=== PATIENT | male | born 1960 | race Caucasian/White ===

== ENCOUNTER → 2017-08-27 16:00 | Outpatient (CLI) | payer OTHER, SELFPAY ==
--- NOTE | 2017-08-27 16:56 | EKG12_ITS ---
Test Reason : PREOP Blood Pressure : / mmHG Vent. Rate : 081 BPM Atrial Rate : 081 BPM P-R Int : 146 ms QRS Dur : 098 ms QT Int : 388 ms P-R-T Axes : 040 -06 019 degrees QTc Int : 450 ms Normal sinus rhythm Normal ECG Confirmed by KARLO CARPIO ([id number]), acquisition editor DEVANTE ELDRIDGE ([id number]) on 08/29/2017 2:27:03 PM Referred By: Willie Mortensen Confirmed By:KARLO CARPIO
[2017-08-27 17:04] LABS: Hemoglobin 15.1 g/dl (13.0-16.5); Mean Corp Hgb Conc 34.3 g/gl (32-36); Mean Corpuscular Hgb 29.3 pg (27.0-32.0); Mean Corpuscular Volume 85.4 fL (80-94); Mean Platelet Vol. 10.2 fl (6.2-12.0); Platelet Count 214 K/mm3 (150-450); RBC Distribution Width CV 13.4 % (11.6-14.6); RBC Distribution Width SD 40.9 fl (35.1-43.9); Red Blood Count 5.15 M/mm3 (4.6-6.2); White Blood Count 7.2 K/mm3 (4.4-11.0)
[2017-08-27 17:05] LABS: Scan Indicated on CBC? Y/N NO
[2017-08-27 17:39] LABS: Anion Gap 10 (5-15); BUN 18 mg/dL (7-18); Calcium,Total 9.2 mg/dL (8.5-10.1); Chloride 103 mmol/L (98-107); EST Glomerular Filtration Rate 81 mL/min (>60); Est Glom Filt Rate - Afr Amer 98 mL/min (>60); Glucose 81 mg/dL (74-106); Potassium 3.8 mmol/L (3.5-5.1); Sodium Level 140 mmol/L (136-145)
== END ==
PROVIDERS: Family Provider Family Medicine; PCP Family Medicine; Visit Provider Orthopaedic Surgery
DX: Z01.810 Encounter for preprocedural cardiovascular examination (principal); Z01.818 Encounter for other preprocedural examination
CPT/HCPCS: 36415; 80048; 85027; 93005

== ENCOUNTER → 2018-04-16 15:43 | Outpatient (CLI) | payer OTHER, SELFPAY | PROVIDERS: Family Provider Family Medicine; PCP Family Medicine; Referring Provider Otolaryngology Otolaryngology/Facial Plastic Surgery; Visit Provider Otolaryngology Otolaryngology/Facial Plastic Surgery | DX: J32.9 Chronic sinusitis, unspecified (principal) | CPT/HCPCS: 87070; 87205 ==

== ENCOUNTER → 2018-10-07 15:54 | Outpatient (CLI) | payer OTHER, SELFPAY | PROVIDERS: Family Provider Family Medicine; PCP Family Medicine; Referring Provider Otolaryngology Otolaryngology/Facial Plastic Surgery; Visit Provider Otolaryngology Otolaryngology/Facial Plastic Surgery | DX: J32.9 Chronic sinusitis, unspecified (principal) | CPT/HCPCS: 87070; 87077; 87186; 87205 ==

== ENCOUNTER → 2018-10-17 15:58 | Outpatient (CLI) | payer OTHER, SELFPAY ==
[2018-10-17 17:11] LABS: Potassium 3.8 mmol/L (3.5-5.1)
== END ==
PROVIDERS: Family Provider Family Medicine; PCP Family Medicine; Referring Provider Otolaryngology Otolaryngology/Facial Plastic Surgery; Visit Provider Otolaryngology Otolaryngology/Facial Plastic Surgery
DX: T88.7XXA Unspecified adverse effect of drug or medicament, initial encounter (principal); Z79.899 Other long term (current) drug therapy
CPT/HCPCS: 36415; 84132

== ENCOUNTER → 2018-11-19 16:00 | Outpatient (CLI) | payer OTHER, SELFPAY ==
[2018-11-19 17:30] LABS: Absolute Lymphocyte Count 2.01 X10^3/ul (0.83-4.51); Absolute Neutrophil Count 4.9 X10^3/uL (2.0-7.7); Basophil# 0.06 X10^3/uL; Basophil% 0.8 % (0-1); Eosinophil# 0.13 X10^3/uL; Eosinophils% 1.6 % (0-5); Hematocrit 43.8 % (40-54); Hemoglobin 14.6 g/dl (13.0-16.5); Lymphocyte # 2.01 X10^3/ul (4.0); Lymphocyte % 25.4 % (19-41); Mean Corp Hgb Conc 33.3 g/gl (32-36); Mean Corpuscular Hgb 29.3 pg (27.0-32.0); Mean Platelet Vol. 10.5 fl (6.2-12.0); Monocyte# 0.76 X10^3/uL; Monocyte% 9.6 % (0-10); Neutrophil # 4.94 X10^3/uL (2.7-7.7); Neutrophil % 62.3 % (47-70); Platelet Count 227 K/mm3 (150-450); RBC Distribution Width CV 13.9 % (11.6-14.6); RBC Distribution Width SD 44.6 fl (35.1-43.9); Red Blood Count 4.98 M/mm3 (4.6-6.2); White Blood Count 7.9 K/mm3 (4.4-11.0)
[2018-11-19 17:32] LABS: POSITIVE COUNT NO; POSITIVE DIFFERENTIAL NO; POSITIVE MORPHOLOGY NO
[2018-11-19 17:42] LABS: AST(SGOT) 14 U/L (15-37); Alanine Aminotransfer ALT/SGPT 29 U/L (16-61); Albumin, Serum 4.2 g/dL (3.2-5.0); Alkaline Phosphatase 67 U/L (45-117); Anion Gap 8 (5-15); BUN 22 mg/dL (7-18); BUN/Creat Ratio 20.2 RATIO (10-20); Bilirubin, Direct 0.12 mg/dL (0.00-0.30); Calcium,Total 9.9 mg/dL (8.5-10.1); Chloride 105 mmol/L (98-107); Creatinine, Serum 1.09 mg/dL (0.70-1.30); EST Glomerular Filtration Rate 73 mL/min (>60); Est Glom Filt Rate - Afr Amer 89 mL/min (>60); Globulin 3.5 g/dL (2.2-4.2); Glucose 84 mg/dL (74-106); Protein, Total 7.7 g/dL (6.4-8.2); Sodium Level 140 mmol/L (136-145)
[2018-11-22 08:13] LABS: QNTFERON TB Mitogen Value > 10.00 IU/mL (.); QNTFERON TB Nil Value 0.02 IU/mL (.); QNTFERON TB1+ Ag Value 0.03 IU/mL (.); QNTFERON TB2+ Ag Value 0.02 IU/mL (.)
[2018-11-23 14:01] LABS: QNTIFERON TB Positive Criteria Negative (Negative)
== END ==
PROVIDERS: Family Provider Family Medicine; PCP Family Medicine; Referring Provider Nurse Practitioner Family; Visit Provider Nurse Practitioner Family
DX: L40.0 Psoriasis vulgaris (principal); Z79.899 Other long term (current) drug therapy
CPT/HCPCS: 36415; 80048; 80076; 85025; 86480

== ENCOUNTER → 2019-05-18 16:32 | Outpatient (CLI) | payer OTHER, SELFPAY ==
--- NOTE | 2019-05-18 16:40 | EKG12_ITS ---
Test Reason : PRE-OP Blood Pressure : / mmHG Vent. Rate : 078 BPM Atrial Rate : 078 BPM P-R Int : 146 ms QRS Dur : 094 ms QT Int : 392 ms P-R-T Axes : 044 -05 007 degrees QTc Int : 446 ms Normal sinus rhythm Normal ECG Confirmed by NITISH PRITCHARD, YASMIN ([id number]), story editor JOCELYN NAVA ([id number]) on 05/19/2019 8:46:01 AM Referred By: Leigha Cotter Confirmed By:YASMIN TALBERT MD
[2019-05-18 17:18] LABS: Hematocrit 46.7 % (40-54); Hemoglobin 14.8 g/dL (13.0-16.5); Mean Corp Hgb Conc 31.7 g/dL (32-36); Mean Corpuscular Volume 88.4 fL (80-94); Mean Platelet Vol. 10.2 fl (6.2-12.0); Platelet Count 260 K/mm3 (150-450); RBC Distribution Width CV 13.2 % (11.6-14.6); Red Blood Count 5.28 M/mm3 (4.6-6.2); White Blood Count 9.7 K/mm3 (4.4-11.0)
[2019-05-18 17:55] LABS: Anion Gap 5 (5-15); BUN 22 mg/dL (7-18); BUN/Creat Ratio 20.6 RATIO (10-20); Calcium,Total 9.3 mg/dL (8.5-10.1); Chloride 103 mmol/L (98-107); Creatinine, Serum 1.07 mg/dL (0.70-1.30); EST Glomerular Filtration Rate 75 mL/min (>60); Est Glom Filt Rate - Afr Amer 90 mL/min (>60); Glucose 64 mg/dL (74-106); Sodium Level 139 mmol/L (136-145)
== END ==
PROVIDERS: Family Provider Family Medicine; PCP Family Medicine; Referring Provider Registered Nurse; Visit Provider Registered Nurse
DX: Z01.810 Encounter for preprocedural cardiovascular examination (principal); Z01.818 Encounter for other preprocedural examination
CPT/HCPCS: 36415; 80048; 85027; 93005

== ENCOUNTER → 2019-06-04 16:32 | Outpatient (CLI) | payer OTHER, SELFPAY ==
--- NOTE | 2019-06-04 16:40 | RAD_ITS ---
STUDY: X-RAY - PELVIS AND LEFT HIP REASON FOR EXAM: Left hip pain. TECHNIQUE: 2 views of the pelvis and hip. COMPARISON: None. FINDINGS: Normal visualized soft tissue structures. There is enthesopathy of the iliac wings bilaterally. Otherwise, unremarkable bilateral iliac wings, sacroiliac joints and visualized sacrum. Normal bilateral superior and inferior pubic rami. Normal pubic symphysis. There is enthesopathy of the bilateral ischial tuberosities. Normal visualized femoral head. Normal acetabulum. Normal hip joint. RAD/HIP, UNI W/ Pelvis 2-3 Views IMPRESSION: Enthesopathy of the iliac wings and ischial tuberosities. Otherwise, unremarkable x-ray examination of the pelvis and left hip. Electronically Signed: Kevin Wong MD at 12:45 EST Tel , Service support ,
== END ==
LOC: RAD 16:34
PROVIDERS: PCP Family Medicine; Referring Provider Nurse Practitioner Family; Visit Provider Nurse Practitioner Family
DX: M25.552 Pain in left hip (principal)
CPT/HCPCS: 73502

== ENCOUNTER → 2019-12-25 14:49 | Outpatient (CLI) | payer OTHER, SELFPAY ==
[2019-12-25 17:34] LABS: Absolute Lymphocyte Count 1.67 X10^3/uL (0.83-4.51); Absolute Neutrophil Count 4.9 X10^3/uL (2.0-7.7); Basophil# 0.05 X10^3/uL; Basophil% 0.7 % (0-1); Eosinophil# 0.09 X10^3/uL; Eosinophils% 1.2 % (0-5); Hematocrit 42.9 % (40-54); Lymphocyte # 1.67 X10^3/ul (4.0); Lymphocyte % 22.6 % (19-41); Mean Corp Hgb Conc 32.6 g/dL (32-36); Mean Corpuscular Hgb 28.6 pg (27.0-32.0); Mean Corpuscular Volume 87.6 fL (80-94); Mean Platelet Vol. 10.7 fl (6.2-12.0); Monocyte# 0.65 X10^3/uL; Monocyte% 8.8 % (0-10); NRBC Flagged by Analyzer 0 % (0-5); Neutrophil % 66.2 % (47-70); Platelet Count 222 K/mm3 (150-450); RBC Distribution Width CV 13.2 % (11.6-14.6); RBC Distribution Width SD 42.1 fl (35.1-43.9); White Blood Count 7.4 K/mm3 (4.4-11.0)
[2019-12-25 17:50] LABS: ALB/GLOB Ratio 1.1 RATIO (0.9-2.4); AST(SGOT) 14 U/L (15-37); Alanine Aminotransfer ALT/SGPT 31 U/L (16-61); Albumin, Serum 3.9 g/dL (3.2-5.0); Alkaline Phosphatase 67 U/L (45-117); Anion Gap 6 (5-15); BUN 17 mg/dL (7-18); BUN/Creat Ratio 19.7 RATIO (10-20); Bilirubin, Direct 0.18 mg/dL (0.00-0.30); Chloride 105 mmol/L (98-107); Cholesterol 162 mg/dL (200); Creatinine, Serum 0.86 mg/dL (0.70-1.30); EST Glomerular Filtration Rate 95 mL/min (>60); Est Glom Filt Rate - Afr Amer 115 mL/min (>60); Globulin 3.6 g/dL (2.2-4.2); Glucose 78 mg/dL (74-106); High Density Lipoprotein 35 mg/dL; Potassium 3.9 mmol/L (3.5-5.1); Protein, Total 7.5 g/dL (6.4-8.2); Sodium Level 140 mmol/L (136-145); Triglycerides 182 mg/dL; Very Low Density Lipoprotein 36 mg/dL (5-40)
[2019-12-26 10:58] LABS: Hepatitis B Surface Antibody Non-Reactive; Hepatitis B Surface Antigen Non-Reactive (Nonreactive); Hepatitis C Antibody Non-Reactive (Nonreactive)
[2019-12-30 05:07] LABS: QNTFERON TB Mitogen Value > 10.00 IU/mL (.); QNTFERON TB Nil Value 0.04 IU/mL (.); QNTFERON TB1+ Ag Value 0.04 IU/mL (.); QNTFERON TB2+ Ag Value 0.02 IU/mL (.)
[2019-12-30 06:11] LABS: QNTIFERON TB Positive Criteria Negative (Negative)
== END ==
PROVIDERS: PCP Family Medicine; Referring Provider Physician Assistant; Visit Provider Physician Assistant
DX: L40.0 Psoriasis vulgaris (principal); Z79.899 Other long term (current) drug therapy
CPT/HCPCS: 36415; 80053; 80061; 82248; 85025; 86480; 86706; 86803; 87340

== ENCOUNTER 2022-01-18 16:00 | Outpatient (RCR) | payer OTHER, SELFPAY ==
--- NOTE | 2021-12-20 14:19 | HP.PTEVAL_ITS ---
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 Date of Evaluation: 12/20/21 Physical Therapist: Bev Church DPT - Visit Plan Frequency: 3x /Week Duration: 4 Weeks Plan: Focus on LE and core strength/stabilization- ROM and functional mobility. HEP Given IE: Bolster extn, quad set, SLR, heel slide seated and supine, hamstring stretch - Subjective Patient reports that about [address] Giordano- cleaned it out- at the time he told him that OA and it was a 3 and 4 bone on bone- keep the leg strong and you will be okay for awhile. At the end of September- he was in a hurry getting to work- tripped and fell and ran his knee into the side of the counter and it bled pretty good. Went to work- about a week later- red/swollen- went to ER at [facility]- they did no blood work and gave him gout pills and send him to his arthritis MD. October 12 he saw the [employer]- she tried to drain some of the fluid off. Mustard color came out- she called his PCP- Infection- sent him [place] for infection-Dr. Bond went in and scrubbed it out and hosed it out. Was in the hospital for 15 days. He went home- [facility] did home health therapy- went to see MD on Saturday- who wants him to get into outpatient. Was on a walker until about a week ago and is now on a cane. Best: 05/22 Eases: sitting down and putting ice on it. Agg: stepping incorrectly. Worst: 01/20. Patient reports that he has crunching noises. Sleep: hard to get comfortable. Describes the pain as dull and achy as well as sharp and shooting depending on what he is doing. Pain is located in the whole knee- no pain that radiates down to the ankle or up into the hip. X-rays were taken Saturday. 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 Is not currently back to work- needs to get back by the end of the month. He can return light duty. Goes to his PCP the 04 of January- Infectious disease Jan 09- [place] in Jan. No N/T in the LE. PMHx: psoriatic arthritis. - Objective Posture: FH, RS can correct with verbal cues but does not maintain. Gait: antalgic- step to pattern with straight cane- decreased stance on the right LE with poor heel/toe pattern. HR/TR: able but reports discomfort. SLS: weight shift but reports pain and instability. Flex: HS: severe, Gastroc: severe. Girth: Patella: 45 cm 6 below: 39 cm, 6 above: 59 cm. ROM: 15-100 degrees. Strength: Core: fair, Hip: 4-/5, Knee: 4/5, Ankle: 5/5. Stairs: non recip with 2 HR - Balance/Special Test Scores Lower Extremity Functional Score: 16 - Goals Goal 1:: Patient will be I with HEP and progression Goal Time Frame: 4-6 Weeks Goal 2:: Patient will ambulate >300 feet with a normalized gait pattern and LRD Goal Time Frame: 4-6 Weeks Goal 3:: Patient will asc/desc 8 stairs recip with 1 HR Goal Time Frame: 4-6 Weeks Goal 4:: Patient will demo 0-120 degrees of ROM Goal Time Frame: 4-6 Weeks Goal 5:: Patient will report 80% improvement. Goal Time Frame: 4-6 Weeks - Rehabilitation Potential Physical Therapy Diagnosis: Patient presents s/p scrub for infection on the right knee- he has decreased LE and core strength/stabilization, ROM, flex, proprioception and functional mobility leading to abnormal gait and decreased ability to perform ADL's Rehabilitation Potential: Good - Anticipated Interventions Patient/Client Instruction: Educate patient on: Benefits of Fitness Program Therapeutic Exercise to Include: Strength training, Endurance training, Balance training, Coordination, Agility training, Body mechanics, Postural training, Flexibilty training, Gait and locomotor training, Neuromotor development, Dynamic Lumbar Stabilization, Scapular Strength/Stabilization For the Purpose of:: To improve muscle performance and motor function TENS: Yes Cryotherapy (ice pack, ice massage): Yes Thermo therapy (hot pack): Yes Ultrasound (thermal/non thermal): No Thank you for the opportunity to evaluate your patient. For Medicare and Medicare HMO plans, please review the plan of care and approve it. It will need to be FAXED BACK to us at [phone] for Medicare purposes. For Medicare only, by signing this I certify the plan of care. Please let me know if there are questions or concerns regarding this plan of care. Physician Signature: Date:
--- NOTE | 2022-01-18 16:25 | HP.PTREVAL_ITS ---
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 Please see the progress note below for an update on the physical therapy plan of care! Subjective: Patient reports that he is a lot better than the first time he came to therapy. He has some soreness due to back to back days yesterday. Patient reports that he is still doing stairs one at a time and can't get out to do his bow. He is able to perform all ADL's without significant modification but can't perform his recreational activities. He would like to continue to work towards his goals indep with a home exercise program. Goes back to MD Jan 26. He feels that something is different in the knee. Dec 18 was the last x-rays taken of the knee. Infectious disease wants to him to have MRI. Objective/Function: Posture: FH, RS can correct with verbal cues but does not maintain. Gait: slightly antalgic- decreased stance on the right LE- straight cane. HR/TR: able without UE A. SLS: 10 seconds Flex: HS: severe, Gastroc: severe. ROM: 0-120 degrees. Strength: Core: fair, Hip: 4+/5, Knee: 5/5 with discomfort, Ankle: 5/5. Stairs: partial recip with 2 HR reports pain and instability Plan Plan: 01/18/22: Hold- will do HEP and follow up in 4-6 weeks- if no FU d/c. Focus on LE and core strength/stabilization - ROM and functional mobility. Balance/Gait/Functional tests - Balance/Special Test Scores Lower Extremity Functional Score: 26 Goals Goal 1:: Patient will be I with HEP and progression Goal Time Frame: 4-6 Weeks Goal Progress: Goal Met Goal 2:: Patient will ambulate >300 feet with a normalized gait pattern and LRD Goal Time Frame: 4-6 Weeks Goal Progress: Progressing Goal 3:: Patient will asc/desc 8 stairs recip with 1 HR Goal Time Frame: 4-6 Weeks Goal Progress: Progressing Goal 4:: Patient will demo 0-120 degrees of ROM Goal Time Frame: 4-6 Weeks Goal Progress: Goal Met Goal 5:: Patient will report 80% improvement. Goal Time Frame: 4-6 Weeks Goal Progress: Progressing Anticipated Interventions Patient/Client Instruction: Educate patient on: Benefits of Fitness Program Therapeutic Exercise to Include: Strength training, Endurance training, Balance training, Coordination, Agility training, Body mechanics, Postural training, Flexibilty training, Gait and locomotor training, Neuromotor development, Dyn amic Lumbar Stabilization, Scapular Strength/Stabilization For the Purpose of:: To improve muscle performance and motor function TENS: Yes Cryotherapy (ice pack, ice massage): Yes Thermo therapy (hot pack): Yes Ultrasound (thermal/non thermal): No Please do not hesitate to contact me at [phone] by phone or if you have questions or concerns regarding this new plan of care! Sincerely, RAQUEL MurrayT
--- NOTE | 2022-04-12 07:56 | HP.PT.NRP ---
ADAN VERA was seen in my office for initial evaluation on 12/20/21. The following Plan of Care was established for this patient: Initial Frequency: 3x /Week Initial Duration: 4 Weeks Patient/Client Instruction: Educate patient on: Benefits of Fitness Program Therapeutic Exercise to Include: Strength training, Endurance training, Balance training, Coordination, Agility training, Body mechanics, Postural training, Flexibilty training, Gait and locomotor training, Neuromotor development, Dynamic Lumbar Stabilization, Scapular Strength/Stabilization For the Purpose of:: To improve muscle performance and motor function TENS: Yes Cryotherapy (ice pack, ice massage): Yes Thermo therapy (hot pack): Yes Ultrasound (thermal/non thermal): No This patient was last seen in our office . Pertinent comments regarding their Physical therapy will appear below: Patient has not attended physical therapy in over 30 days- at this time d/c is appropriate and return to the MD for further evaluation as needed At this point I will be discontinuing this patient from physical therapy. I would be happy to see this patient again in the future if found appropriate by the physician. Thank you! Bev Church DPT Balance/Gait/Functional tests - Balance/Special Test Scores Lower Extremity Functional Score: 26
== END 2022-01-18 19:00 | disposition home or self-care (01) ==
LOC: PT 16:00
PROVIDERS: PCP Nurse Practitioner Primary Care
DX: M00.861 Arthritis due to other bacteria, right knee (principal); B95.62 Methicillin resistant Staphylococcus aureus infection as the cause of diseases classified elsewhere
CPT/HCPCS: 97110; 97140; 97162; 97164

== ENCOUNTER → 2022-12-03 | Outpatient (CLI) | payer OTHER, SELFPAY ==
--- NOTE | 2022-12-03 12:21 | EKG12_ITS ---
Test Reason : PRE OP Blood Pressure : / mmHG Vent. Rate : 072 BPM Atrial Rate : 072 BPM P-R Int : 152 ms QRS Dur : 096 ms QT Int : 396 ms P-R-T Axes : 056 043 023 degrees QTc Int : 433 ms Normal sinus rhythm Incomplete right bundle branch block Borderline ECG When compared with ECG of 18-MAY-2019 16:55, No significant change was found Confirmed by NITISH PRITCHARD, YASMIN ([id number]), book editor JOCELYN NAVA ([id number]) on 12/04/2022 7:27:57 AM Referred By: El Cordero Confirmed By:YASMIN TALBERT MD
[2022-12-03 14:03] LABS: Anion Gap 5 (5-15); BUN 30 mg/dL (7-18); BUN/Creat Ratio 25.6 RATIO (10-20); Calcium,Total 9.2 mg/dL (8.5-10.1); Chloride 104 mmol/L (98-107); Cholesterol 137 mg/dL (200); Creatinine, Serum 1.17 mg/dL (0.70-1.30); EST Glomerular Filtration Rate 67 mL/min (>60); Est Glom Filt Rate - Afr Amer 81 mL/min (>60); Glucose 90 mg/dL (74-106); High Density Lipoprotein 31 mg/dL; Potassium 4.3 mmol/L (3.5-5.1); Sodium Level 135 mmol/L (136-145); Triglycerides 208 mg/dL; Very Low Density Lipoprotein 42 mg/dL (5-40)
[2022-12-03 15:09] LABS: Hematocrit 40.3 % (40-54); Hemoglobin 12.7 g/dL (13.0-16.5); Mean Corp Hgb Conc 31.5 g/dL (32-36); Mean Corpuscular Hgb 28.2 pg (27.0-32.0); Mean Corpuscular Volume 89.4 fL (80-94); Platelet Count 257 K/mm3 (150-450); RBC Distribution Width CV 13.4 % (11.6-14.6); Red Blood Count 4.51 M/mm3 (4.6-6.2); White Blood Count 6.3 K/mm3 (4.4-11.0)
== END | disposition home or self-care (01) ==
PROVIDERS: PCP Nurse Practitioner Primary Care; Referring Provider Physician Assistant; Visit Provider Physician Assistant
DX: Z01.810 Encounter for preprocedural cardiovascular examination (principal); Z01.818 Encounter for other preprocedural examination
CPT/HCPCS: 36415; 80048; 80061; 85027; 93005

== ENCOUNTER 2023-05-28 13:00 | Outpatient (RCR) | payer OTHER, SELFPAY ==
--- NOTE | 2023-04-24 11:17 | HP.PTEVAL_ITS ---
Patient's Visit Information Visit Information Visit Information: ADAN VERA is a 62 year old M referred to Physical Therapy by JAXON GREENWOOD with a diagnosis of OTHER SPECIFIED ARTHRITIS RIGHT KNEE. Date of Evaluation: 04/23/23 Physical Therapist: Drake Raphael, PT, Cert MDT, OCS Visit Plan Frequency: 2x /Week Duration: 6 Weeks Plan: S/P TKA Apr 17 PT INTERVTIONS GAIT TRAINING ,BALANCE TRAINING ,ROM ,STRENGTHENING QUADS/HAMS/HIP ,NUSTEP AND FUNCTIONAL STRENGTHENING Subjective Subjective: This 62 y/o male presents to physical therapy with right TKA on 04/17/23 . Patient has knee pain October 2021 ,had incidence had a fall a cut knee developed staph infection. Seen DR placed on antibiotics for 8weeks. Seen Dr at [facility] had x-rays showed severe DJD .Patient had s/p TKA at [facility]. Patient d/c Apr 18 , with fww . patient to RTD 05/02 . Patient can remove dressing 04/24 . If any drainage call MD. Patient showering with dressing silverlon .Patient has 1 story home with 4steps with rails ,walk in shower with seat. Patient needs assist with shoe and sock . Denies paresthesia/tingling -. Patient sleeping okay. Pain medication #5 oxycodone q 6 hours. Patient condition affects QOL and function. Patient goals to walk normal. SOCIAL: SINGLE VOCATION: [place] Pain Right Knee: Pain Intensity (Out of 10): 6 Pain Intensity Range: 10 Objective Objective: POSTURE: mild forward posture ,hips/knees flexed GIRTH PATELLA : 48.2cm GIRTH 6 SUPRAPATELLAR: 60.2 cm 2 NEURO: denies paresthesia/tingling, SKIN: incision well approximate bandage intact silverdon AROM: supine knee flexion 5-95 degrees supine knee flexion MMT:( peak force) quads 12.2 ,hamstrings 13.3 GAIT: ambulates with fww with WBAT RLE STAIRS : one step at time with rails Balance/Special Test Scores Lower Extremity Functional Score: 24 TUG Test Time Seconds: 18.5 WOMAC Total Score: 65 WOMAC Percentatge: 32.3000 Goals Goal 1:: Patient to be I with HEP for knee replacement Goal Time Frame: 6-8 Weeks Goal 2:: Patient to improve quality of gait no device reciprocal pattern with TUG score < 10 SEC Goal Time Frame: 6-8 Weeks Goal 3:: Patient to improve AROM supine knee flexion 115 degrees to ascend /descend stairs reciprocal with rails Goal Time Frame: 6-8 Weeks Goal 4:: Patient to improve peak force quads/hams by 10-15 # to improve function Goal Time Frame: 6-8 Weeks Goal 5:: Patient to improve WOMAC by 10 points to improve function and QOL Goal Time Frame: 6-8 Weeks Goal 6:: Patient to improve LFES by 10 points to improve QOL and function and gait Goal Time Frame: 4-6 Weeks Rehabilitation Potential Physical Therapy Diagnosis: This patient underwent s/p right TKA Apr 17 with decrease ROM ,strength ,gait ,stairs and pain thus benefit from skilled PT Rehabilitation Potential: Good Anticipated Interventions Patient/Client Instruction: Educate patient on: Condition and Plan of Care For the Purpose of:: To decrease pain, To decrease swelling/inflammation, To increase ROM, To improve nutrient delivery to tissue, To increase oxygenation perfusion, To improve muscle performance and motor function, To increase tolerance to activity/condition/position, To improve ability of physical actions for home/community/work/leisure, To improve gait and locomotor functions, To improve health of tissue, To decrease soft tissue restriction, To increase flexibility/ROM and To improve tolerance to ADL's Therapeutic Exercise to Include: Strength training, Endurance training, Balance training, Flexibilty training, Gait and locomotor training, Passive ROM and Active ROM Comment: LLE QUADS/HAMS/HIP For the Purpose of:: To decrease pain, To increase ROM, To improve muscle performance and motor function, To improve ability to perform ADL's, To increase tolerance to activity/condition/position, To improve performance and independence with ADL's, To improve ability of physical actions for home/community/work/leisure, To improve gait and locomotor functions, To improve health of tissue, To decrease soft tissue restriction, To increase flexibility/ROM, To improve endurance, To improve balance and To improve tolerance to ADL's Cryotherapy (ice pack, ice massage): Yes Vasopneumatic device: Yes For the Purpose of:: To increase ROM, To improve nutrient delivery to tissue, To increase oxygenation perfusion, To improve health of tissue and To decrease soft tissue restriction Text: Thank you for the opportunity to evaluate your patient. For Medicare and Medicare HMO plans, please review the plan of care and approve it. It will need to be FAXED BACK to us at [phone] for Medicare purposes. For Medicare only, by signing this I certify the plan of care. Please let me know if there are questions or concerns regarding this plan of care. Physician Signature: Date:
--- NOTE | 2023-08-26 17:20 | HP.PTDCSUM ---
Discharge Summary D/C summary: It has been my pleasure to treat ADAN VERA referred by JAXON GREENWOOD, with the diagnosis of OTHER SPECIFIED ARTHRITIS RIGHT KNEE for a total of 10 visit(s). Discharge Date: Please see the following information for a summary of their discharge status. Subjective Subjective: Doing great right knee plan to see MD about left knee Pain Right Knee: Pain Intensity (Out of 10): 0 Left Knee: Pain Intensity (Out of 10): 3 Overall Improvement % Improvement: 90 Objective Objective/Function: Did well with ex's progressing with ROM and ambulated with no device with improved gait pattern and zonia with left knee ,patient will discuss with MD about left knee and x-ray goals met Goals Goal 1:: Patient to be I with HEP for knee replacement Goal Progress: Goal Met Goal 2:: Patient to improve quality of gait no device reciprocal pattern with TUG score < 10 SEC Goal Progress: Goal Met Goal 3:: Patient to improve AROM supine knee flexion 115 degrees to ascend /descend stairs reciprocal with rails Goal Progress: Goal Met Goal 4:: Patient to improve peak force quads/hams by 10-15 # to improve function Goal Progress: Goal Met Goal 5:: Patient to improve WOMAC by 10 points to improve function and QOL Goal 6:: Patient to improve LFES by 10 points to improve QOL and function and gait Plan Plan: S/P TKA Apr 17 d/c to hep D/C Information d/c sentence: If there are questions or concerns regarding this patient's physical therapy, please feel free to call me at [phone]. Thank you for the referral of this patient. Sincerely, Drake Raphael, PT, Cert MDT, OCS Balance/Gait/Functional tests Balance/Special Test Scores Lower Extremity Functional Score: 24 TUG Test Time Seconds: 18.5 Tug Test: <20 sec.=mostly independent WOMAC Total Score: 65 WOMAC Percentage: 32.3000 Improvement % Improvement: 90
== END 2023-05-28 19:00 | disposition home or self-care (01) ==
LOC: PT 13:00
PROVIDERS: PCP Nurse Practitioner Primary Care
DX: M13.861 Other specified arthritis, right knee (principal)
CPT/HCPCS: 97110; 97162

== ENCOUNTER 2024-05-01 18:14 | Inpatient (IN) | payer OTHER, SELFPAY ==
[2024-05-01] VITALS (17 sets, daily range): BP systolic 70–114; BP diastolic 48–78; PULSE 69–97; RESP 14–21; TEMP 35.8–36.9; O2SAT 91–100; BMI 42.9
[2024-05-01] MEDS: 0.9% Normal Saline (1000mL) 1,000 ML 1000 ML IV ×2 (18:20→18:40)
--- NOTE | 2024-05-01 18:30 | ED.RN ---
awaiting orders to send blood work
--- NOTE | 2024-05-01 18:31 | EKG12_ITS ---
Test Reason : Blood Pressure : */* mmHG Vent. Rate : 68 BPM Atrial Rate : 68 BPM P-R Int : 148 ms QRS Dur : 102 ms QT Int : 404 ms P-R-T Axes : 47 36 11 degrees QTcB Int : 429 ms Critical Test Result: STEMI Normal sinus rhythm [facility] / STEMI Abnormal ECG Confirmed by NITISH PRITCHARD, YASMIN ([id number]), supervising editor news reel VONDA LEAL ([id number]) on 05/04/2024 6:40:03 AM Referred By: Confirmed By: YASMIN TALBERT MD
--- NOTE | 2024-05-01 18:35 | CT_ITS ---
STUDY: CTA CHEST REASON FOR EXAM: Male, 63 years old. chest pain RADIATION DOSAGE (If Supplied By Facility): CTDIvol = ( 12.66 ) mGy, DLP = ( 567.16 ) mGycm TECHNIQUE: The examination was performed with the intravenous administration of IV 100mL Isovue-370. Post-processing of the angiographic images was performed, with multiplanar reformation and 3D reconstruction. Individualized dose optimization techniques were used for this CT. COMPARISON: None. FINDINGS: Normal enhancement of the main pulmonary artery and right and left pulmonary arteries. Normal enhancement of the bilateral peripheral pulmonary arteries. There is no demonstrated pulmonary embolism. Minor atherosclerotic changes of the aorta without evidence for aneurysm. There is no demonstrated aortic dissection. Heart size is normal. There is mild coronary artery calcification Normal mediastinum. Normal hilar regions. Normal visualized trachea and bronchi. The lungs are well expanded. Normal pulmonary parenchyma. Normal pleura. Normal chest wall structures. Dorsal spine demonstrates interval changes Normal visualized upper abdomen. CT/CTA Chest W/WO Contrast IMPRESSION: ASHD without evidence for aortic aneurysm, pulmonary embolus or other acute disease. Electronically Signed: Rudy Abraham MD at 19:20 [facility] ,
[2024-05-01] MEDS: Ondansetron 4 MG/2 ML Vial IV (18:37)
[2024-05-01] MEDS: MethylPREDNISolone 125 MG/2 ML Vial IV (18:37)
[2024-05-01] MEDS: Heparin Injection (Vial) 5,000 UNIT/ML VIAL 4000 UNIT IV (18:40)
--- NOTE | 2024-05-01 18:48 | PCM.HP.STD ---
HPI - General General Date of Admission: 05/01/24 Date of Service: 05/01/24 Chief Complaint: Chest pain/burning sensation, belching HPI Narrative The patient is a 63 y/o M w/ PMHx: CKD stage II per GFR trending, Morbid obesity, RLS, GERD, HTN, Osteoarthritis who presents to the [facility] ED on 05/01/24 per EMS with atypical history of earlier in the day being at the [facility] with planned left total knee replacement however he was being initiated on preoperative antibiotics of unclear type and may have had some type of reaction but it was never certain and is not clear on this but reportedly started to have significant itching and redness to the skin with concern for possible allergic reaction with operative intervention deferred and patient was monitored until 1 PM at which time he was discharged to home but prior to this they did repeat an EKG and there was some concern for some changes from his preoperative 1 with recommended follow-up with PCP at follow-up after which he return to home and from the timeline of going home to ED presentation he reported significant severe burning sensation in his midsternal chest with no radiation with associated belching with no lightheadedness, dizziness, diaphoresis but did have nausea and 1 bout of emesis rating his discomfort in his chest at 8-9 out of 10 in severity during those episodes although currently upon ED evaluation 7 out of 10 in severity eventually coming so weak upon his return to home laying on the floor unable to get up with at that point calling EMS. Per discussion with staff it appears as though his brother had driven him home. In the ED workup included T98.4, heart rate 97, BP 102/62, respiratory rate 18, 98% on room air however patient blood pressure did drop to 70/60 but did improve following 2 L normal saline to 95/69, CBC with WBC 12.8, hemoglobin 13.8, platelet 192 with left shift and lymphopenia, unremarkable coags, CMP with BUN/creatinine 23/2.49, GFR 28, hepatic profile unremarkable, troponin 10, CTA chest with no evidence of PE, aneurysm or acute disease, EKG initial with sinus rhythm with nonspecific changes however when patient became hypotensive repeat EKG was obtained and there was concern for ST elevations anterolaterally prompting ED physician discussed case and reviewed with cardiology with STEMI call interventional decision to obtain CTPA and given this was unremarkable transition to the cardiac catheterization lab for emergent catheterization. In the ED patient administered full-strength aspirin therapy, Brilinta load, famotidine 40 mg p.o. x 1, heparin bolus, Solu-Medrol 125 mg IV x 1 as well as Zofran 4 mg IV x 2. [facility] Medical History Allergic rhinitis RLS (restless legs syndrome) Morbid obesity CKD (chronic kidney disease), stage II History of torn meniscus of left knee History of torn meniscus of right knee torn bicep tendon HTN (hypertension) Arthritis Home Medications ?Medication ?Instructions ?Recorded ?Last Taken ?Type celecoxib 200 mg capsule (Celebrex) 400 mg PO DAILY 04/18/20 Unknown History clonidine HCl 0.1 mg tablet 0.1 mg PO QHS 04/18/20 Unknown History coenzyme Q10 100 mg capsule (Co 100 mg PO DAILY 04/18/20 Unknown History Q-10) cyclobenzaprine 10 mg tablet 10 mg PO TID 04/18/20 Unknown History duloxetine 60 mg capsule,delayed 60 mg PO DAILY 04/18/20 Unknown History release (Cymbalta) ezetimibe 10 mg tablet (Zetia) 10 mg PO DAILY 04/18/20 Unknown History famciclovir 500 mg tablet 500 mg PO BID 04/18/20 Unknown History fexofenadine 180 mg tablet 180 mg PO DAILY 04/18/20 Unknown History glucosamine sulfate 500 mg tablet 500 mg PO DAILY 04/18/20 Unknown History guaifenesin 600 mg tablet, 600 mg PO Q12H PRN 04/18/20 Unknown History extended release 12 hr (Mucinex) isosorbide mononitrate 30 mg 30 mg PO DAILY 04/18/20 Unknown History tablet,extended release 24 hr mometasone 50 mcg/actuation nasal 2 spray intranasal DAILY 04/18/20 Unknown History spray (Nasonex) omega-3 fatty acids 500 mg capsule 500 mg PO DAILY 04/18/20 Unknown History pantoprazole 40 mg tablet,delayed 40 mg PO DAILY 04/18/20 Unknown History release pramipexole 0.25 mg tablet 0.25 mg PO DAILY 04/18/20 Unknown History (Mirapex) pregabalin 100 mg capsule (Lyrica) 100 mg PO TID 04/18/20 Unknown History verapamil 240 mg 24 hr 240 mg PO DAILY 04/18/20 Unknown History capsule,extended release vitamin B complex (B 1 tab PO DAILY 04/18/20 Unknown History Complex-Vitamin B12 tablet) Allergy/AdvReac Type Severity Reaction Status Date / Time naproxen (From Anaprox) Allergy Mild nausea Verified 05/01/24 18:25 Family History Father Myocardial infarction Heart disease Hypertension CAD (coronary artery disease) Mother Heart disease Surgical History S/P shoulder surgery History of back surgery S/p bilateral carpal tunnel release S/P arthroscopic surgery of right knee Status post total knee replacement, right Social History household members: none housing: house Smoking Status: Never smoker alcohol intake: never what type of physical activity do you participate in: none do you feel safe at home: Yes ROS ROS Narrative Admission Review of Systems: CONSTITUTIONAL: No weight loss, fever, chills, + weakness or fatigue. HEENT: Eyes: No visual loss, blurred vision, double vision or yellow sclerae. Ears, Nose, Throat: No hearing loss, sneezing, congestion, runny nose or sore throat. SKIN: No rash or itching, lesions, wounds, + questionable pruritic, reddened skin earlier in the day following possibly preoperative antibiotic therapy. CARDIOVASCULAR: + Atypical burning sensation in the chest. No palpitations, edema, orthopnea, syncopal events. RESPIRATORY: No shortness of breath, cough or sputum, wheezing, hemoptysis. GASTROINTESTINAL: No anorexia, nausea, vomiting or diarrhea, abdominal pain, melena, BRBPR. GENITOURINARY: No dysuria, frequency, urgency or retention. NEUROLOGICAL: No headache, dizziness, syncope, paralysis, ataxia, numbness or tingling in the extremities, focal weakness, change in bowel or bladder control, seizure. MUSCULOSKELETAL: + muscle, back pain, joint pain or stiffness. HEMATOLOGIC: No anemia, bleeding or bruising. LYMPHATICS: No enlarged nodes. No history of splenectomy. PSYCHIATRIC: No history of depression or anxiety. ENDOCRINOLOGIC: No reports of sweating, cold or heat intolerance. No polyuria or polydipsia. ALLERGIES: + History of allergic rhinitis. Vital Signs Vital Signs Vital Signs: 05/01/24 18:19 05/01/24 18:27 05/01/24 18:28 Temperature 98.4 F 98.4 F Temperature Source Oral Oral Pulse Rate 97 83 Respiratory Rate 18 20 H Respiratory Effort Normal Non-Labored Blood Pressure 102/62 70/60 L Blood Pressure Mean 75 63 Pulse Ox 98 99 Oxygen Delivery Method Room Air Nasal Cannula Oxygen Flow Rate (L/min) 4 05/01/24 18:31 Temperature Temperature Source Pulse Rate 69 Respiratory Rate 14 Respiratory Effort Blood Pressure 81/48 L Blood Pressure Mean 59 Pulse Ox 100 Oxygen Delivery Method Nasal Cannula Oxygen Flow Rate (L/min) 4 Weight Weight: 290 lb 12.635 oz Body Mass Index (BMI) 42.9 Physical Exam Narrative Physical Examination: General: Awake, alert, oriented x 3 and cooperative, seated upright in the ED bed in no apparent distress, currently rating his chest burning sensation at 7 out of 10 in severity, intermittently belching in the ED Skin: Normal color, normal turgor, no icterus, no cyanosis. HEENT: AT/NC, EOMI, PERRLA, mildly dry MM, no carotid bruits, unable to discern JVD given significantly thickened neck. Lungs: Diminished, distant, greater bases, mildly increased respiratory rate but no distress no rales, ronchi or wheezing. Heart: Regular rate and rhythm; no gallop, rub audible. Abdomen: Soft, morbidly obese, NTTP, mildly hyperactive BS, difficult to appreciate distention HSM given habitus Extremities: No cyanosis, no clubbing, mild ankle not markedly pitting edema. Neurological: Patient awake, alert, oriented as noted, cognitive function intact; pupils equally reactive to light and accommodation, cranial nerves grossly normal, moving all 4 extremities, no focal deficits, strength moderately to severely global decrease secondary to acute presentation. Psychiatric: Affect appears uncomfortable, fatigued, no acute evidence of depressive or anxiety feelings. Results Lab / Micro Data 05/01/24 16:35 05/01/24 16:35 Assessment & Plan Assessment/Plan (1) STEMI (ST elevation myocardial infarction): QUALIFIERS: Involved coronary artery: LAD coronary artery Qualified Code(s): I21.02 - ST elevation (STEMI) myocardial infarction involving left anterior descending coronary artery (2) Acute kidney injury: PLAN: Plan The patient is a 63 y/o M w/ PMHx: CKD stage II per GFR trending, Morbid obesity, RLS, GERD, HTN, Osteoarthritis who presents to the [facility] ED on 05/01/24 per EMS with atypical history of earlier in the day being at the [facility] with planned left total knee replacement however he was being initiated on preoperative antibiotics of unclear type and may have had some type of reaction but it was never certain and is not clear on this but reportedly started to have significant itching and redness to the skin with concern for possible allergic reaction with operative intervention deferred and patient was monitored until 1 PM at which time he was discharged to home but prior to this they did repeat an EKG and there was some concern for some changes from his preoperative 1 with recommended follow-up with PCP at follow-up after which he return to home and from the timeline of going home to ED presentation he reported significant severe burning sensation in his midsternal chest. #1. Chest Pain w/ Acute anterolateral STEMI with hypotension suspected secondary to acute STEMI presentation but also possibly dehydration with KARRI: EKG in ED w/ anterior lateral elevations, CTA chest with no acute findings, initial troponin normal range. Transitioning from ED to cardiac catheterization with Dr. Jensen, will admit to ICU following, will maintain on a monitored bed, continue serial cardiac enzymes and EKGs. Obtain magnesium level upon admission. Administered heparin bolus and Brilinta load as well as aspirin full-strength in the ED. Continue medical management w/ asa, adding high-dose statin w/ AM FLP. ECHO requested. Given hypotension upon presentation holding addition of beta-stanley/BIRGIT inhibitor/ARB he also because of KARRI, cardiology consulted and following as noted. #2. Acute kidney injury on CKD stage II per GFR trend: Unclear etiology. Admission BUN/Cr 23/2.49, GFR 20, prior baseline creatinine noted to be to be primarily 0.8-1.2, most recently 06/18/2023 creatinine 1.26. Will continue to aggressively hydrate, hold nephrotoxic medications and repeat chemistry in AM. If no improvement would plan FeNa and renal US assessment. #3. Questionable allergic reaction, possibly from antibiotic: Patient preoperatively with possible reaction to antibiotic therapy, noted to become pruritic and red, seem to improved and was released with surgery deferred at 1 PM, unclear if his potential current presentation is in any way related, administered already IV famotidine and Solu-Medrol in the ED, will hold on further aggressive regimen but continue to closely monitor as this is only postulated, records requested from [facility] to further assess. #4. Hypertension: Given presentation with hypotension holding home regimen, discussed with cardiology and they will add once appropriate. #5. Hyperlipidemia: Adding high-dose statin therapy, continue Zetia regimen. FLP in AM. #6. Allergic rhinitis: We will continue patient home fluticasone and Claritin regimen. #7. Morbid Obesity: Weight loss and lifestyle changes encouraged. #8. Restless leg syndrome: Will continue patient on Mirapex regimen. #9. GERD: We will continue Protonix. #10. Osteoarthritis, severe: Patient supposed to have knee replacement, unfortunately this has been delayed, encourage continued follow-up with orthopedic surgeon as previously arranged however will be delayed given recent stent placement. #11. DVT prophylaxis: Lovenox. #12. CODE status: Patient HCPOA and living will are not in place but he notes he would want his brother to be his medical decision-maker if necessary. Discussed CODE status at length including difference between FULL code, DNR-CCA and DNR-CC status. Following discussions about the differences in these status, requested Full Code status. Advanced Care Planning Face to Face Time: 16 minutes. Charges/Coding Visit Charges Inpatient E&M: 84895 Init Hosp L3 Procedures Hospitalists Procedures: 29079 Advncd Care Plan 30 Min
[2024-05-01] MEDS: TICAGRELOR 90 MG TABLET 180 MG PO (19:03)
[2024-05-01] MEDS: Aspirin 81 MG TAB.CHEW 324 MG PO (19:03)
--- NOTE | 2024-05-01 19:04 | ED.RN ---
discussed with Dr Santacruz, bella young, pt having burning epigastric pain. Manager Paper ordered to have CTA prior to going to lift slab operator. physician and [address] scan.
[2024-05-01 19:07] LABS: Absolute Lymphocyte Count 0.15 X10^3/uL (0.83-4.51); Absolute Neutrophil Count 12.2 X10^3/uL (2.0-7.7); Basophil# 0.03 X10^3/uL; Basophil% 0.2 % (0-1); Eosinophil# 0.07 X10^3/uL; Eosinophils% 0.5 % (0-5); Hemoglobin 13.8 g/dL (13.0-16.5); Lymphocyte # 0.15 X10^3/ul (0.83-4.51); Lymphocyte % 1.2 % (19-41); Mean Corp Hgb Conc 32.1 g/dL (32-36); Mean Corpuscular Hgb 27.4 pg (27.0-32.0); Mean Corpuscular Volume 85.3 fL (80-94); Mean Platelet Vol. 11.3 fl (6.2-12.0); Monocyte# 0.21 X10^3/uL; Monocyte% 1.6 % (0-10); NRBC Flagged by Analyzer 0 % (0-5); Neutrophil # 12.16 X10^3/uL (2.7-7.7); Neutrophil % 95.5 % (47-70); POSITIVE DIFFERENTIAL YES; Platelet Count 192 K/mm3 (150-450); RBC Distribution Width CV 14.1 % (11.6-14.6); RBC Distribution Width SD 43.3 fl (35.1-43.9); Red Blood Count 5.04 M/mm3 (4.6-6.2); White Blood Count 12.8 K/mm3 (4.4-11.0)
[2024-05-01 19:09] LABS: AST(SGOT) 18 U/L (15-37); Alanine Aminotransfer ALT/SGPT 19 U/L (16-61); Albumin, Serum 3.5 g/dL (3.2-5.0); Alkaline Phosphatase 64 U/L (45-117); Anion Gap 10 (5-15); BUN 23 mg/dL (7-18); BUN/Creat Ratio 9.2 RATIO (10-20); Bilirubin, Direct 0.25 mg/dL (0.00-0.30); Calcium,Total 9.1 mg/dL (8.5-10.1); Chloride 104 mmol/L (98-107); Creatinine, Serum 2.49 mg/dL (0.70-1.30); EST Glomerular Filtration Rate 28 mL/min (>60); Est Glom Filt Rate - Afr Amer 34 mL/min (>60); Estimated Creatinine Clearance 39.82 ml/min; Globulin 2.9 g/dL (2.2-4.2); Glucose 103 mg/dL (74-106); Lipase 22 U/L (13-75); Potassium 3.5 mmol/L (3.5-5.1); Protein, Total 6.4 g/dL (6.4-8.2); Sodium Level 138 mmol/L (136-145); Troponin-I HS (w/2H Reflex) 10 pg/mL (3.0-78.0)
[2024-05-01] MEDS: Famotidine 200 MG/20 ML MDV 20 MG in 0.9% Normal Saline (Pres. free 8 ML 300 MG IV (19:09)
[2024-05-01 19:12] LABS: International Normalized Ratio 1.1; Prothrombin Time (Protime)PT. 14.4 SECONDS (11.7-14.9)
--- NOTE | 2024-05-01 19:12 | ED.RN ---
2 tutorial laboratory supervisor RNs and ED RN transporting pt to tutorial laboratory supervisor. Dr. Jensen has been discussing POC with Dr. Santacruz. brother with pt to tutorial laboratory supervisor
[2024-05-01 19:13] LABS: Partial Thromboplast Time 25.2 Seconds (24.1-36.2)
--- NOTE | 2024-05-01 19:36 | EKG12_ITS ---
Test Reason : STEMI Blood Pressure : */* mmHG Vent. Rate : 92 BPM Atrial Rate : 92 BPM P-R Int : 152 ms QRS Dur : 100 ms QT Int : 362 ms P-R-T Axes : 43 56 31 degrees QTcB Int : 447 ms Poor data quality, interpretation may be adversely affected Normal sinus rhythm Incomplete right bundle branch block Borderline ECG Confirmed by NITISH PRITCHARD, YASMIN ([id number]), manuscript editor VONDA LEAL ([id number]) on 05/04/2024 6:40:15 AM Referred By: MAUREEN Confirmed By: YASMIN TALBERT MD
--- NOTE | 2024-05-01 20:10 | PCM.CONS.C ---
Assessment & Plan Assessment/Plan (1) STEMI (ST elevation myocardial infarction): QUALIFIERS: Involved coronary artery: LAD coronary artery Qualified Code(s): I21.02 - ST elevation (STEMI) myocardial infarction involving left anterior descending coronary artery PLAN: Treated with thrombectomy and drug-eluting stent placement. Will keep the patient on aspirin, Brilinta, statin. Patient was hypotensive upon presentation. We will attempt to start him on a beta-stanley tomorrow. He will need a 2D echo to evaluate his LV function tomorrow. (2) Acute kidney injury: PLAN: Appears prerenal. Patient will need IV fluids overnight. HPI Consult Data Date of Consult: 05/01/24 HPI Narrative Reason for Consultation: STEMI HPI Narrative: ADAN VERA, is a 63 M who presents with epigastric discomfort. Please refer to ER physician note and also the H&P for full details. Patient has had an eventful day today. He apparently was supposed to get knee replacement and had gone to [facility]. He was given an antibiotic and looks like he had a reaction to it. He was then sent home. Patient started having epigastric discomfort and called EMS. EKG done outside the hospital was suspicious for anterolateral STEMI. However the first EKG at 6:17 PM after patient presented to the ER revealed no STEMI. Patient's chest discomfort had also resolved. STEMI alert was canceled. He then had some epigastric discomfort and an EKG was repeated which revealed anterolateral ST elevation SC at 6:31 PM. There were also changes that were suspicious for a PE and a CTA was performed which revealed no PE. Patient had episodes of hypotension after presenting to the hospital. He was brought emergently to the [facility] and underwent coronary angiography which revealed 99% stenosis in the mid LAD with thrombus that was treated with thrombectomy and drug-eluting stent placement. Patient is doing well at the end of the procedure. He does appear to have acute kidney injury upon presentation. This is possibly prerenal and will be treated with IV fluids. Patient is being admitted to the CCU for further management of his anterolateral STEMI. [facility] Medical History (Updated 05/01/24 @ 20:[address] Joselin Jensen MD) History of torn meniscus of left knee History of torn meniscus of right knee torn bicep tendon HTN (hypertension) Arthritis Home Medications ?Medication ?Instructions ?Recorded ?Last Taken ?Type celecoxib 200 mg capsule (Celebrex) 400 mg PO DAILY 04/18/20 Unknown History clonidine HCl 0.1 mg tablet 0.1 mg PO QHS 04/18/20 Unknown History coenzyme Q10 100 mg capsule (Co 100 mg PO DAILY 04/18/20 Unknown History Q-10) cyclobenzaprine 10 mg tablet 10 mg PO TID 04/18/20 Unknown History duloxetine 60 mg capsule,delayed 60 mg PO DAILY 04/18/20 Unknown History release (Cymbalta) ezetimibe 10 mg tablet (Zetia) 10 mg PO DAILY 04/18/20 Unknown History famciclovir 500 mg tablet 500 mg PO BID 04/18/20 Unknown History fexofenadine 180 mg tablet 180 mg PO DAILY 04/18/20 Unknown History glucosamine sulfate 500 mg tablet 500 mg PO DAILY 04/18/20 Unknown History guaifenesin 600 mg tablet, 600 mg PO Q12H PRN 04/18/20 Unknown History extended release 12 hr (Mucinex) isosorbide mononitrate 30 mg 30 mg PO DAILY 04/18/20 Unknown History tablet,extended release 24 hr mometasone 50 mcg/actuation nasal 2 spray intranasal DAILY 04/18/20 Unknown History spray (Nasonex) omega-3 fatty acids 500 mg capsule 500 mg PO DAILY 04/18/20 Unknown History pantoprazole 40 mg tablet,delayed 40 mg PO DAILY 04/18/20 Unknown History release pramipexole 0.25 mg tablet 0.25 mg PO DAILY 04/18/20 Unknown History (Mirapex) pregabalin 100 mg capsule (Lyrica) 100 mg PO TID 04/18/20 Unknown History verapamil 240 mg 24 hr 240 mg PO DAILY 04/18/20 Unknown History capsule,extended release vitamin B complex (B 1 tab PO DAILY 04/18/20 Unknown History Complex-Vitamin B12 tablet) Allergy/AdvReac Type Severity Reaction Status Date / Time naproxen (From Anaprox) Allergy Mild nausea Verified 05/01/24 18:25 Family History (Updated 04/18/20 @ 10:34 by Anna Segovia) Father Myocardial infarction Social History (Updated 04/25/20 @ 14:[address] Bartolome Quintana, DO) household members: none housing: house Smoking Status: Never smoker alcohol intake: never what type of physical activity do you participate in: none do you feel safe at home: Yes Physical Exam Const alert HEENT normocephalic Eyes no scleral icterus Resp normal respiratory effort Extremity no pedal edema Psych mental status grossly normal Risk Stratification Risk Stratification Applicable: No Charges/Coding Visit Charges Inpatient E&M: 45560 Init Hosp L2 Objective Data Vital Signs: Vital Signs Temp Pulse Resp BP Pulse Ox O2 Del Method O2 Flow Rate 98.4 F 69 18 95/69 96 Nasal Cannula 4 05/01/24 19:10 05/01/24 19:10 05/01/24 19:10 05/01/24 19:10 05/01/24 19:10 05/01/24 18:58 05/01/24 18:58 Oxygen Flow Rate (L/min) 4 Oxygen Delivery Method Nasal Cannula Weight: 290 lb 12.635 oz Body Mass Index (BMI) 42.9 Intake & Output: Intake and Output for Last 24 Hours 04/29/24 04/30/24 05/01/24 23:59 23:59 23:59 Intake Total 2109 Balance 2109 Lab / Micro Data 05/01/24 16:35 05/01/24 16:35 Labs: Laboratory Results - last 24 hr 05/01/24 16:35: WBC 12.8 H, RBC 5.04, Hgb 13.8, Hct 43.0, MCV 85.3, MCH 27.4, MCHC 32.1, RDW Std Deviation 43.3, RDW Coeff of [place]mit[place] 14.1, Plt Count 192, MPV 11.3, Immature Gran % (Auto) 1.000 H, Neut % (Auto) 95.5 H, Lymph % (Auto) 1.2 L, [place] % (Auto) 1.6, Eos % (Auto) 0.5, Baso % (Auto) 0.2, Absolute Neuts (auto) 12.2 H, Absolute Lymphs (auto) 0.15 L, Nucleated RBC % 0, PT 14.4, INR 1.1, APTT 25.2, Sodium 138, Potassium 3.5, Chloride 104, Carbon Dioxide 24.0, Anion Gap 10, BUN 23 H, Creatinine 2.49 H, Estim Creat Clear Calc 39.82, Est GFR (MDRD) Af Amer 34 L, Est GFR (MDRD) Non-Af 28 L, BUN/Creatinine Ratio 9.2 L, Glucose 103, Calcium 9.1, Total Bilirubin 0.70, Direct Bilirubin 0.25, AST 18, ALT 19, Alkaline Phosphatase 64, Troponin I High Sens 10, Total Protein 6.4, Albumin 3.5, Globulin 2.9, Lipase 22 Cardiology Labs/Tests 05/01/24 16:35: WBC 12.8 H, RBC 5.04, Hgb 13.8, Hct 43.0, MCV 85.3, MCH 27.4, MCHC 32.1, Plt Count 192, MPV 11.3, Immature Gran % (Auto) 1.000 H, Neut % (Auto) 95.5 H, Lymph % (Auto) 1.2 L, [place] % (Auto) 1.6, Eos % (Auto) 0.5, Baso % (Auto) 0.2, Absolute Neuts (auto) 12.2 H, Nucleated RBC % 0, PT 14.4, INR 1.1, APTT 25.2, Sodium 138, Potassium 3.5, Chloride 104, Carbon Dioxide 24.0, Anion Gap 10, BUN 23 H, Creatinine 2.49 H, Est GFR (MDRD) Af Amer 34 L, Est GFR (MDRD) Non-Af 28 L, BUN/Creatinine Ratio 9.2 L, Glucose 103, Calcium 9.1, Total Bilirubin 0.70, Direct Bilirubin 0.25 Rhythm: EKG: ECHO: Stress Test: Cardiac Cath: PCI: CT Surgery: Holter monitor: EPS: PPM: CXR: Chest CT Scan: Radiography Diagnostic Testing: Radiology Impression Chest CTA 05/01/24 18:35 IMPRESSION: ASHD without evidence for aortic aneurysm, pulmonary embolus or other acute disease. Electronically Signed: Adan Abraham MD at 19:20 EST ,
--- NOTE | 2024-05-01 20:21 | ECHOCS_ITS ---
Reason For Study: STEMI Procedure This was a 2D Doppler, Color Flow transthoracic echocardiogram. The study was technically difficult. Contrast injection was performed. Exam performed portable in ICU/CCU. Left Ventricle Normal left ventricle. Mid cavitary false tendon noted. Mild to moderate segmental systolic dysfunction (see wall motion). The left ventricular ejection fraction is 40 %. [place] : Severely Hypokinetic. Septal [place] : Severely Hypokinetic. Lateral [place] : Hypokinetic. Mid-Anterior : Hypokinetic. Mid-anteroseptal : Hypokinetic. The rest of the wall segments are normal. Right Ventricle Normal RV size. Atria Normal left atrium. Normal right atrium. Mitral Valve Normal mitral valve. Tricuspid Valve Normal tricuspid valve. Aortic Valve Normal aortic valve. Pulmonic Valve Normal pulmonic valve. Great Vessels Normal aortic root. The pulmonary artery is normal size. Inferior vena cava collapse with respiration. Pericardium/Pleural No pericardial effusion. Medication Diluted definity 3ml given slow IV push to enhance endocardial definition. MMode/2D Measurements & Calculations LVOT diam: 2.0 cm Ao root diam: 3.4 cm LAV(MOD-bp): 46.1 ml LVOT area: 3.2 cm2 LAV(MOD-bp) Indexed: 19.1 ml/m2 LAV(MOD-sp2): 38.2 ml LAV(MOD-sp4): 47.6 ml SV(MOD-sp4): 96.5 ml SV(sp4-el): 97.8 ml LVAd ap4: 47.7 cm2 LVLd ap4: 9.9 cm SI(MOD-sp4): 39.9 ml/m2 EDV(MOD-sp4): 187.8 ml EDV(sp4-el): 194.5 ml LVAs ap4: 30.6 cm2 LVLs ap4: 8.2 cm ESV(MOD-sp4): 91.3 ml ESV(sp4-el): 96.7 ml EF(MOD-sp4): 51.4 % EF(sp4-el): 50.3 % LA dimension(2D): 3.3 cm LA A4 area: 18.4 cm2 RA A4 area: 12.5 cm2 Time Measurements MV dec time: 0.18 sec Doppler Measurements & Calculations MV E max tavo: 85.1 cm/sec Lat Peak E' Tavo: 8.8 cm/sec Med Peak E' Tavo: 6.7 cm/sec MV A max tavo: 93.8 cm/sec E/E' lat: 9.7 E/E' med: 12.7 MV E/A: 0.91 MV V2 max: 101.2 cm/sec MV dec slope: 498.4 cm/sec2 Ao V2 max: 178.9 cm/sec MV max P.1 mmHg Ao max P.8 mmHg MV V2 mean: 70.3 cm/sec Ao V2 mean: 132.5 cm/sec MV mean P.3 mmHg Ao mean P.8 mmHg MV V2 VTI: 23.3 cm Ao V2 VTI: 36.5 cm MVA(VTI): 4.0 cm2 AV (velocity ratio): 0.78 ALYSE(I,D): 2.5 cm2 ALYSE(V,D): 2.5 cm2 LV V1 max: 138.8 cm/sec SV(LVOT): 92.1 ml PA V2 max: 94.1 cm/sec LV V1 max P.7 mmHg PA V2 mean: 70.8 cm/sec LV V1 mean P.4 mmHg LV V1 mean: 98.3 cm/sec LV V1 VTI: 28.4 cm TR max tavo: 279.0 cm/sec TR max P.1 mmHg ECHO/Echo Complete W/ Contrast Interpretation Summary Normal left ventricle. Mild to moderate segmental systolic dysfunction (see wall motion). The left ventricular ejection fraction is 40 %. Structurally normal valves. Contrast injection was performed. Ordering Physician: Ayesha Goetz Referring Physician: BEKA KLINE Performed By: Lisa Barron RCS
--- NOTE | 2024-05-01 20:29 | CL.I_ITS ---
Patient Name: ADAN VERA Study Date: 05/01/2024 Performing: Jojo Jensen MD Ht: 69 inches 175.26 cm : 1960 Wt: 291.2 lbs 131.9 kg Age: 63 Gender: male BSA: 2.42 PROCEDURE(S) PERFORMED DC02-([id number])C/COR IC16-([id number])AMI, AMAIRANI OR PTCA, ARTERY/GRAFT, SINGLE VESSEL CLINICAL PROFILE AND CO-MORBIDITIES Heart Failure: None CAD Presentations: STEMI. Symptom onset Date/Time: 05/01/24 Time Not Available CONCLUSIONS CAD as described. Successful thrombectomy and drug-eluting stent placement to the mid LAD. RECOMMENDATIONS DESCRIPTION OF PROCEDURE The patient arrived to the procedure lab. The risks and benefits of the procedure as well as a full description of our services here and lack of surgical backup were fully explained to the patient and/or their significant other prior to the catheterization. The Timeout was completed, verifying the correct patient and procedure. The patient's procedural site was prepped and draped in the usual fashion. Local anesthetic was given subcutaneously to right radial region with Lidocaine 2%. Using a modified Seldinger technique, arterial access was obtained via the right radial artery, a 6Fr sheath was inserted.. Right Coronary Artery selective angiography was then performed in multiple views using a 5 Fr. JR 4 catheter XB 3.0 Guide catheter was inserted and engaged into the LCA. BMW Guide wire was advanced to the LAD. Priority One inserted Pass # 1 Priority One Removed Angiogram performed post priority One Angiogram performed post priority One Emerge 3.00x20 Balloon catheter was inserted. PTCA balloon inflated at 10 atms for 13 secs. Angiogram performed post balloon dilatation. [place] Anil 3.0x26 Drug Eluting stent was inserted. Angiogram performed post stent deployment. The arterial sheath was pulled and a TR Band was applied for hemostasis w/ 11ml air CORONARY ANGIOGRAPHY DOMINANCE: Right Dominant LEFT MAIN: Mild luminal irregularities LEFT ANTERIOR DESCENDING ARTERY: MID LAD: 99 % Stenosis CIRCUMFLEX ARTERY: Mild luminal irregularities RIGHT CORONARY ARTERY: Mild luminal irregularities INTERVENTION INFORMATION LESION SITE: LAD (Mid) Lesion Complexity: High/C, chronic total occlusion: No, lesion at bifurcation: No, thrombus present: Yes, lesion length: 24 mm, culprit lesion: Yes, Previously treated lesion: No Pre Stenosis: 99 % Pre intervention NIK flow: 2 PROCEDURE: Thrombectomy, Drug Eluting Stent with pre dilatation. Post Stenosis: 0 % Post intervention NIK flow: 3 Lesion Devices: Banegas .014 190cm BMW Tripp Straight Cordis 6 Fr XB3.0 100cm Guide Catheter Terumo Priority One Aspiration Catheter Arnel Sci EMERGE MR 3.00x20 BALLOON Medtronic 3.0 x 26 ANIL FRONTIER AMAIRANI COMPLICATIONS No Complications PROCEDURE MEDICATIONS Fentanyl 50 mcg IV Oxygen: 4 L/min via nasal cannula Heparin given IA 05/01/2024 19:35:22 Heparin 3000 unit(s) IV 05/01/2024 19:42:49 Verapamil 2.5mg, Ntg 100mcgs, 3000 units of Heparin given IA 05/01/2024 19:35:22 IV Bolus: .9 NaCl 250ml total 05/01/2024 19:39:04 SUMMARY OF HEMODYNAMIC DATA Time AIR REST ECG 19:22:27 AO 83/49 (63) SA 19:37:39 AO 76/53 (62) 19:50:52 Signed By Jojo Jensen MD On 05/01/2024 20:28:59 Jojo Jensen MD
[2024-05-01 20:32] LABS: Magnesium 1.6 mg/dL (1.6-2.6)
--- NOTE | 2024-05-01 20:32 | EKG12_ITS ---
Test Reason : O Blood Pressure : */* mmHG Vent. Rate : 68 BPM Atrial Rate : 68 BPM P-R Int : 148 ms QRS Dur : 102 ms QT Int : 404 ms P-R-T Axes : 47 36 11 degrees QTcB Int : 429 ms Critical Test Result: STEMI Normal sinus rhythm ST elevation consider anterolateral injury or acute infarct ACUTE FL / STEMI Abnormal ECG When compared with ECG of 01-May-2024 18:31, MANUAL COMPARISON REQUIRED DATA IS UNCONFIRMED Confirmed by NITISH PRITCHARD, YASMIN ([id number]), offline editor VONDA LEAL ([id number]) on 05/04/2024 8:45:56 AM Referred By: Confirmed By: YASMIN TALBERT MD
[2024-05-01 20:44] LABS: Reflex Troponin-HS? (from REC) Y
[2024-05-01] MEDS: 0.9% Normal Saline (1000mL) 1,000 ML 125 ML IV (20:57)
[2024-05-01] MEDS: Atorvastatin Calcium 80 MG Tablet PO (20:57)
--- NOTE | 2024-05-01 21:06 | EX.ED.DYSGE1 ---
HPI History of Present Illness Chief Complaint: Chest Pain Informant: patient and EMS Narrative Narrative: 63-year-old male presenting to the emergency department via EMS. Patient reportedly went to have a knee replacement at [facility] today. He states that while getting the presurgical antibiotic he developed a whole-body rash described as redness and itching. He states that everything seemed very much a blur as they were given him different medicines and he became like jelly. He remembers the given Benadryl as well as oxycodone. He states that he was told that his EKG there looked different than his prehospital EKG they needed to schedule follow-up with his primary care doctor. He does not know what the EKG showed. He states that he returned home and continued to feel like jelly and that tonight he found himself on the ground. He notes belching and burning in his chest. He states he has been intermittently having this but cannot describe when it started. States that typically he would take some Gaviscon and it would resolve. EMS notes that when they got there his blood pressure was low and his EKG was concerning for STEMI. They transmitted here for prehospital STEMI was called. They noted that when they arrived at the hospital his blood pressure was better and his EKG had changed for the better. [facility] Medical History Allergic rhinitis RLS (restless legs syndrome) Morbid obesity CKD (chronic kidney disease), stage II History of torn meniscus of left knee History of torn meniscus of right knee torn bicep tendon HTN (hypertension) Arthritis Home Medications ?Medication ?Instructions ?Recorded ?Last Taken ?Type celecoxib 200 mg capsule (Celebrex) 400 mg PO DAILY 04/18/20 Unknown History clonidine HCl 0.1 mg tablet 0.1 mg PO QHS 04/18/20 Unknown History coenzyme Q10 100 mg capsule (Co 100 mg PO DAILY 04/18/20 Unknown History Q-10) cyclobenzaprine 10 mg tablet 10 mg PO TID 04/18/20 Unknown History duloxetine 60 mg capsule,delayed 60 mg PO DAILY 04/18/20 Unknown History release (Cymbalta) ezetimibe 10 mg tablet (Zetia) 10 mg PO DAILY 04/18/20 Unknown History famciclovir 500 mg tablet 500 mg PO BID 04/18/20 Unknown History fexofenadine 180 mg tablet 180 mg PO DAILY 04/18/20 Unknown History glucosamine sulfate 500 mg tablet 500 mg PO DAILY 04/18/20 Unknown History guaifenesin 600 mg tablet, 600 mg PO Q12H PRN 04/18/20 Unknown History extended release 12 hr (Mucinex) isosorbide mononitrate 30 mg 30 mg PO DAILY 04/18/20 Unknown History tablet,extended release 24 hr mometasone 50 mcg/actuation nasal 2 spray intranasal DAILY 04/18/20 Unknown History spray (Nasonex) omega-3 fatty acids 500 mg capsule 500 mg PO DAILY 04/18/20 Unknown History pantoprazole 40 mg tablet,delayed 40 mg PO DAILY 04/18/20 Unknown History release pramipexole 0.25 mg tablet 0.25 mg PO DAILY 04/18/20 Unknown History (Mirapex) pregabalin 100 mg capsule (Lyrica) 100 mg PO TID 04/18/20 Unknown History verapamil 240 mg 24 hr 240 mg PO DAILY 04/18/20 Unknown History capsule,extended release vitamin B complex (B 1 tab PO DAILY 04/18/20 Unknown History Complex-Vitamin B12 tablet) Allergy/AdvReac Type Severity Reaction Status Date / Time naproxen (From Anaprox) Allergy Mild nausea Verified 05/01/24 18:25 Family History Father Myocardial infarction Heart disease Hypertension CAD (coronary artery disease) Mother Heart disease Surgical History S/P shoulder surgery History of back surgery S/p bilateral carpal tunnel release S/P arthroscopic surgery of right knee Status post total knee replacement, right Social History household members: none housing: house Smoking Status: Never smoker alcohol intake: never what type of physical activity do you participate in: none do you feel safe at home: Yes ROS ROS ED Constitutional Constitutional ED: Denies chills, fever(s) or weight loss Eyes Eyes: Denies change in vision or diplopia ENT ENT ED: Denies ear pain, rhinorrhea or sore throat Cardiovascular Cardiovascular: Reports chest pain; Denies orthopnea, palpitations or racing heartbeat Respiratory/Chest Respiratory/Chest: Denies cough, dyspnea or orthopnea Gastrointestinal Gastrointestinal: Reports nausea; Denies abdominal pain, diarrhea or vomiting Genitourinary Genitourinary ED: Denies dysuria, hematuria or urinary frequency Musculoskeletal Musculoskeletal: Denies arthralgias or myalgias Integumentary Reports rash; Denies abscess Neurologic Neurologic: Denies headache(s) or weakness Psychiatric Psychiatric: Denies anxiety, depression, suicidal ideation or suicidal thoughts Endocrine Endocrinology: Denies polydipsia, polyphagia or polyuria Allergic/Immunologic Allergic/Immunologic ED: Denies mouth swelling, tongue swelling or urticaria EXAM Physical Exam Narrative Exam Narrative: Patient appears uncomfortable rubbing his upper abdomen and chest stating he has a burning sensation in his belching. He also appears nauseated. Const Vital Signs: 05/01/24 18:15 05/01/24 18:19 05/01/24 18:27 Temperature 98.4 F Temperature Source Oral Pulse Rate 97 Respiratory Rate 18 18 Respiratory Effort Normal Non-Labored Blood Pressure 95/69 102/62 Blood Pressure Mean 75 Pulse Ox 98 Oxygen Delivery Method Room Air Oxygen Flow Rate (L/min) 05/01/24 18:28 05/01/24 18:31 05/01/24 18:58 Temperature 98.4 F 98.4 F Temperature Source Oral Oral Pulse Rate 83 69 80 Respiratory Rate 20 H 14 18 Respiratory Effort Blood Pressure 70/60 L 81/48 L 86/71 L Blood Pressure Mean 63 59 76 Pulse Ox 99 100 100 Oxygen Delivery Method Nasal Cannula Nasal Cannula Nasal Cannula Oxygen Flow Rate (L/min) 4 4 4 Positive well nourished and well developed General Appearance ED: well developed and NAD HEENT Reports normocephalic, head/scalp atraumatic and moist mucous membranes Eyes PERRL and EOMs intact bilaterally Neck no lymphadenopathy, supple and no JVD Resp normal respiratory effort and clear to auscultation bilaterally Cardio regular rate, regular rhythm and no murmurs GI normal to inspection, nondistended, normoactive bowel sounds and non-tender Palpation: soft Back/Spine no CVA tenderness and normal ROM Extremity normal to inspection General Extremety ED: Negative for edema General Extremity: Negative for edema Neuro oriented x3 and CN's II-XII intact bilaterally Sensorium / Orientation: alert Motor Exam: strength 5/5 throughout Psych mental status grossly normal Mood & Affect: Negative for depressed or tearful Skin no wounds Skin Narrative: Patient appears to have erythematous blanching like skin diffusely. MDM MDM MDM Narrative Medical decision making narrative: Prehospital STEMI team was called and the EKG transmitted to [facility] cylinder filler. Upon arrival here in the emergency department the patient's blood pressure is better than prehospital and his initial EKG shows a sinus rhythm with incomplete right bundle branch block pattern. This was also transmitted to the STEMI physician. There was initially some confusion as to whether or not the patient actually had surgery but he did not. The patient became hypotensive and I noted that in lead I on the monitor the QRS morphology. Different. A repeat EKG was obtained while he was hypotensive which shows ST elevation similar to the prehospital EKG in the anterior lateral leads as well as lead I. There also appears to be changes in the ST segments in 3 slightly and aVF. This was sent again to the STEMI physician. Patient received Solu-Medrol Pepcid as well as heparin and later aspirin and Brilinta. STEMI physician requested a CTA of the chest was obtained which does not demonstrate an obvious dissection or large pulmonary embolism on my review. Patient received IV fluid boluses. Differential for this is broad but my concern was that there could be a left-sided lesion that is being brought out by the hypotension. It is difficult to say if the hypotension is from an allergic reaction versus primary cardiac in nature or some combination. Patient was taken to the cardiac Senior Biostatistician. His initial blood work shows a troponin of 10 lipase 22 a elevated creatinine 2.49 with a BUN of 23. White count 12.8 hemoglobin 13.8 platelet count is 192. Case was discussed with the hospitalist. History & Record Review Discussion w/independent historian: EMS personnel and Patient Lab Data Attestation: I reviewed the patient's lab results. Labs: Laboratory Results - last 24 hr 05/01/24 16:35 WBC 12.8 H RBC 5.04 Hgb 13.8 Hct 43.0 MCV 85.3 MCH 27.4 MCHC 32.1 RDW Std Deviation 43.3 RDW Coeff of Almita 14.1 Plt Count 192 MPV 11.3 Immature Gran % (Auto) 1.000 H Neut % (Auto) 95.5 H Lymph % (Auto) 1.2 L [place] % (Auto) 1.6 Eos % (Auto) 0.5 Baso % (Auto) 0.2 Absolute Neuts (auto) 12.2 H Absolute Lymphs (auto) 0.15 L Nucleated RBC % 0 PT 14.4 INR 1.1 APTT 25.2 Sodium 138 Potassium 3.5 Chloride 104 Carbon Dioxide 24.0 Anion Gap 10 BUN 23 H Creatinine 2.49 H Estim Creat Clear Calc 39.82 Est GFR (MDRD) Af Amer 34 L Est GFR (MDRD) Non-Af 28 L BUN/Creatinine Ratio 9.2 L Glucose 103 Calcium 9.1 Magnesium 1.6 Total Bilirubin 0.70 Direct Bilirubin 0.25 AST 18 ALT 19 Alkaline Phosphatase 64 Troponin I High Sens 10 Total Protein 6.4 Albumin 3.5 Globulin 2.9 Lipase 22 Radiography Diagnostic Testing: Clinical Impression(s) from Imaging Studies Chest CTA 05/01/24 18:35 IMPRESSION: ASHD without evidence for aortic aneurysm, pulmonary embolus or other acute disease. Electronically Signed: Rudy Abraham MD at 19:20 EST Reading Location ID and State: [address] [place] [address] Tel , Service support , Management Discussion w/another healthcare provider: Hospitalist (Dr Goetz) and Assistant Mechanic (Dr Jensen) Critical Care Time Critical Care Time: Yes Critical care time (excluding procedures): 30-74 minutes (35 min), Including time spent:, Discussing w/Patient &/or Family/Marketing Automation Specialist, Discussing w/Consultants, Arranging Admission or Transfer and Performing Direct Patient Care at Bedside Discharge Plan Disposition Disposition: Acute Care Hospital [facility] Discharge Date/Time: 05/01/24 19:47
[2024-05-01] MEDS: Pregabalin 50 MG Capsule 100 MG PO (21:19)
[2024-05-01 21:21] LABS: Troponin-I HS 1884 pg/mL (3.0-78.0)
[2024-05-01 23:45] LABS: Troponin-I HS 9971 pg/mL (3.0-78.0)
[2024-05-02] VITALS (17 sets, daily range): BP systolic 110–139; BP diastolic 55–82; PULSE 80–100; RESP 16–22; TEMP 36.4–36.9; O2SAT 93–99; BMI 42.8
[2024-05-02] MEDS: 0.9% Normal Saline (1000mL) 1,000 ML 125 ML IV (05:01)
[2024-05-02] MEDS: 0.9% Saline Lock 10 ML Syringe IV ×2 (05:04→20:58)
[2024-05-02] MEDS: Pregabalin 50 MG Capsule 100 MG PO ×3 (05:09→20:58)
[2024-05-02 05:18] LABS: Absolute Neutrophil Count 22.9 X10^3/uL (2.0-7.7); Basophil# 0.07 X10^3/uL; Basophil% 0.3 % (0-1); Eosinophil# 0.04 X10^3/uL; Eosinophils% 0.2 % (0-5); Hematocrit 42.3 % (40-54); Hemoglobin 13.8 g/dL (13.0-16.5); Lymphocyte % 0.4 % (19-41); Mean Corp Hgb Conc 32.6 g/dL (32-36); Mean Corpuscular Hgb 27.6 pg (27.0-32.0); Mean Corpuscular Volume 84.6 fL (80-94); Mean Platelet Vol. 11.1 fl (6.2-12.0); Monocyte# 0.61 X10^3/uL; Monocyte% 2.5 % (0-10); NRBC Flagged by Analyzer 0 % (0-5); Neutrophil # 22.88 X10^3/uL (2.7-7.7); Neutrophil % 95.6 % (47-70); POSITIVE DIFFERENTIAL YES; POSITIVE MORPHOLOGY YES; Platelet Count 173 K/mm3 (150-450); RBC Distribution Width CV 14.5 % (11.6-14.6); RBC Distribution Width SD 43.8 fl (35.1-43.9); White Blood Count 23.9 K/mm3 (4.4-11.0)
[2024-05-02 05:31] LABS: Differential Indicated SCAN CRITERIA MET
[2024-05-02 05:36] LABS: AST(SGOT) 113 U/L (15-37); Alanine Aminotransfer ALT/SGPT 36 U/L (16-61); Albumin, Serum 3.1 g/dL (3.2-5.0); Alkaline Phosphatase 61 U/L (45-117); Anion Gap 7 (5-15); BUN 29 mg/dL (7-18); BUN/Creat Ratio 13.9 RATIO (10-20); Calcium,Total 8.2 mg/dL (8.5-10.1); Chloride 108 mmol/L (98-107); Cholesterol 102 mg/dL (200); Creatinine, Serum 2.08 mg/dL (0.70-1.30); EST Glomerular Filtration Rate 34 mL/min (>60); Est Glom Filt Rate - Afr Amer 41 mL/min (>60); Estimated Creatinine Clearance 47.63 ml/min; Globulin 3.1 g/dL (2.2-4.2); Glucose 139 mg/dL (74-106); High Density Lipoprotein 41 mg/dL; Potassium 4.7 mmol/L (3.5-5.1); Protein, Total 6.2 g/dL (6.4-8.2); Sodium Level 138 mmol/L (136-145); Triglycerides 131 mg/dL; Very Low Density Lipoprotein 26 mg/dL (5-40)
--- NOTE | 2024-05-02 05:55 | EKG12_ITS ---
Test Reason : AM EKG Blood Pressure : */* mmHG Vent. Rate : 90 BPM Atrial Rate : 90 BPM P-R Int : 158 ms QRS Dur : 102 ms QT Int : 376 ms P-R-T Axes : 38 16 9 degrees QTcB Int : 459 ms Normal sinus rhythm Incomplete right bundle branch block Inferior infarct , age undetermined Abnormal ECG When compared with ECG of 01-May-2024 20:32, MANUAL COMPARISON REQUIRED DATA IS UNCONFIRMED Confirmed by NITISH PRITCHARD, YASMIN ([id number]), editor map VONDA LEAL ([id number]) on 05/04/2024 8:36:52 AM Referred By: VENECIA Confirmed By: YASMIN TALBERT MD
[2024-05-02 06:34] LABS: Troponin-I HS 31568 pg/mL (3.0-78.0)
--- NOTE | 2024-05-02 07:53 | PCM.PN.HOSP ---
Reason for Visit Reason for Visit: Chest pain Subjective Subjective Mr. Cortes is a 63-year-old white male with a history of morbid obesity and hypertension who presents emergency department [facility] on 05/01/2024 with chest pain/burning sensation/belching. He had been at [facility] for a planned left total knee arthroplasty on the day of presentation. He said he felt almost drunk while he was getting his preoperative antibiotics and preop testing and his surgical case was deferred as there was concern for possible allergic reaction. He was monitored until about 1 PM at which time he was discharged home but prior to this they did an EKG and there was some concern for changes since his preoperative 1 that was done prior to presentation. They recommended follow-up with his primary care physician and he returned home. He stated at home he began having significant burning in his chest in the midsternal region with no radiation and associated belching. He again reported a drunk feeling but did not have any dizziness, diaphoresis or significant shortness of breath. He did complain of nausea with 1 bout of emesis. He became so weak he was at home laying on the floor and the squad was called. Vital signs in the emergency department showed a temperature of 98.4, heart rate 97, blood pressure 102/62, respiratory rate is 18, sats were 98% on room air. His blood pressure did drop while in the emergency department to 70/60 but improved following 2 L nasal cannula to 95/69. CBC showed a mild leukocytosis with a white count of 12.8 and a normal hemoglobin. CMP showed a BUN of 23 with a serum creatinine of 2.49. Baseline is unknown. Initial troponin was 10. CTA of the chest was performed with no evidence of PE or dissection. EKG in the emergency department initially was normal sinus rhythm with nonspecific changes however he became hypotensive and a repeat EKG showed ST elevations anterior laterally prompting a STEMI call to be initiated. He was taken emergently to the Environmental Technology Professor at which time he was found to have 99% occlusion of the mid LAD and a AMAIRANI to the mid LAD was performed. After catheterization he was started on Brilinta, aspirin, and high intensity dose statin and admitted to the intensive care unit for monitoring postprocedure. He had few very short runs of VT with the longest being 4 beats. Patient denies any pain and states he is feeling well. He states he would like to get his knee replaced so he can start exercising and losing weight which is in his plans for the future and is pleased to hear that he can still do that after he completed cardiac rehab. I did a cane to him he will probably go home tomorrow as long as he remains stable. Objective Data Objective Data Vital Signs: Vital Signs Temp Pulse Resp BP Pulse Ox O2 Del Method O2 Flow Rate 97.6 F L 88 17 125/75 H 96 Nasal Cannula 1 05/02/24 06:00 05/02/24 07:00 05/02/24 07:00 05/02/24 07:00 05/02/24 07:00 05/02/24 07:00 05/02/24 07:00 Oxygen Flow Rate (L/min) 1 Oxygen Delivery Method Nasal Cannula Weight: 131.7 kg Body Mass Index (BMI) 42.8 Intake & Output: Intake and Output for Last 24 Hours 04/30/24 05/01/24 05/02/24 23:59 23:59 23:59 Intake Total 2110 / 2110 1000 / 1000 Output Total 400 / 400 Balance 1710 / 1710 1000 / 1000 Lab / Micro Data 05/02/24 05:00 05/02/24 05:00 Labs: Laboratory Results - last 24 hr 05/01/24 16:35: WBC 12.8 H, RBC 5.04, Hgb 13.8, Hct 43.0, MCV 85.3, MCH 27.4, MCHC 32.1, RDW Std Deviation 43.3, RDW Coeff of Almita 14.1, Plt Count 192, MPV 11.3, Immature Gran % (Auto) 1.000 H, Neut % (Auto) 95.5 H, Lymph % (Auto) 1.2 L, [place] % (Auto) 1.6, Eos % (Auto) 0.5, Baso % (Auto) 0.2, Absolute Neuts (auto) 12.2 H, Absolute Lymphs (auto) 0.15 L, Nucleated RBC % 0, PT 14.4, INR 1.1, APTT 25.2, Sodium 138, Potassium 3.5, Chloride 104, Carbon Dioxide 24.0, Anion Gap 10, BUN 23 H, Creatinine 2.49 H, Estim Creat Clear Calc 39.82, Est GFR (MDRD) Af Amer 34 L, Est GFR (MDRD) Non-Af 28 L, BUN/Creatinine Ratio 9.2 L, Glucose 103, Calcium 9.1, Magnesium 1.6, Total Bilirubin 0.70, Direct Bilirubin 0.25, AST 18, ALT 19, Alkaline Phosphatase 64, Troponin I High Sens 10, Total Protein 6.4, Albumin 3.5, Globulin 2.9, Lipase 22 05/01/24 20:45: Troponin I High Sens 1884 H* 05/01/24 23:05: Troponin I High Sens 9971 H* 05/02/24 05:00: WBC 23.9 H, RBC 5.00, Hgb 13.8, Hct 42.3, MCV 84.6, MCH 27.6, MCHC 32.6, RDW Std Deviation 43.8, RDW Coeff of Almita 14.5, Plt Count 173, MPV 11.1, Immature Gran % (Auto) 1.000 H, Neut % (Auto) 95.6 H, Lymph % (Auto) 0.4 L, [place] % (Auto) 2.5, Eos % (Auto) 0.2, Baso % (Auto) 0.3, Absolute Neuts (auto) 22.9 H, Absolute Lymphs (auto) 0.10 L, Nucleated RBC % 0, Sodium 138, Potassium 4.7, Chloride 108 H, Carbon Dioxide 23.0, Anion Gap 7, BUN 29 H, Creatinine 2.08 H, Estim Creat Clear Calc 47.63, Est GFR (MDRD) Af Amer 41 L, Est GFR (MDRD) Non-Af 34 L, BUN/Creatinine Ratio 13.9, Glucose 139 H, Calcium 8.2 L, Total Bilirubin 0.50, AST 113 H, ALT 36, Alkaline Phosphatase 61, Troponin I High Sens 09068 H*, Total Protein 6.2 L, Albumin 3.1 L, Globulin 3.1, Albumin/Globulin Ratio 1.0, Triglycerides 131, Cholesterol 102, LDL Cholesterol 35, VLDL Cholesterol 26, HDL Cholesterol 41 Radiography Diagnostic Testing: Radiology Impression Chest CTA 05/01/24 18:35 IMPRESSION: ASHD without evidence for aortic aneurysm, pulmonary embolus or other acute disease. Electronically Signed: Rudy Abraham MD at 19:20 EST , Physical Exam Const alert, oriented x3, no apparent distress and well nourished; Negative for average body habitus or healthy appearing Constitutional Narrative: Very pleasant, morbidly obese, white male, sitting up in bed watching television, appears comfortable, nontoxic HEENT head/scalp atraumatic and moist oral mucous membranes HEENT Narrative: Mallampati 3, no thrush Head and Scalp: normocephalic Resp normal respiratory effort, no retractions, no use of accessory muscles and clear to auscultation bilaterally Auscultation: Negative for rales, rhonchi or wheezes Cardio regular rate, regular rhythm, S1 normal heart sound, S2 normal heart sound, no murmurs, no rub, no gallops and no clicks GI normal to inspection, nondistended, normoactive bowel sounds, soft to palpation and non-tender GI Narrative: Large protuberant abdomen Extremity no clubbing, cyanosis or edema Extremity Narrative: Right knee with postoperative well-healed total knee arthroplasty incision in place, joint does appear to be mildly swollen but no tenderness Neuro moves all extremities and no focal motor deficits Speech: speech normal Psych affect normal Psych Narrative: Extremely pleasant, eye contact is good, patient interacts appropriately Assessment & Plan Assessment/Plan (1) STEMI (ST elevation myocardial infarction): QUALIFIERS: Involved coronary artery: LAD coronary artery Qualified Code(s): I21.02 - ST elevation (STEMI) myocardial infarction involving left anterior descending coronary artery (2) Leukocytosis: (3) Elevated serum creatinine: PLAN: Plan STEMI -PCI with AMAIRANI to mid LAD on 05/01/2024 -Very minimal reperfusion arrhythmias -Continue high intensity dose statin -Stop Zetia -Continue aspirin -Continue Brilinta -Echocardiogram performed and shows an EF of 40% with mild to moderate segmental systolic dysfunction -Started Coreg 3.125 and dose was increased to 6.25 by cardiology today -If blood pressure can tolerate and renal function improves will add low-dose BIRGIT inhibitor/ARB tomorrow -Cardiology following-appreciate input Acute -Hopefully EF will improve with appropriate goal-directed therapy -Anticipate repeat echocardiogram to be done in the next 8 to 12 weeks Elevated serum creatinine -Most recent baseline is unknown however in June serum creatinine is 1.24 -IV fluids as ordered at 75 cc/h for 1 L -Avoid nephrotoxins -Hold home Celebrex -Will need to assess renal dosing for any home medications that we are restarting however awaiting med reconciliation to be performed -Repeat lab in a.m. Essential hypertension -Stop home calcium channel stanley -Stop home nitrate -Coreg as ordered above -Add BIRGIT inhibitor if tolerates and renal function improves Hyperlipidemia -Discontinue home Zetia -Continue high intensity dose statin Restless leg syndrome -Will restart home medication once verified Psoriatic arthritis/chronic pain -Will restart home medications as appropriate once verified Depression/anxiety -Restart home medication once verified GERD -Restart Protonix if verified Morbid obesity -BMI 42.9 -Recommend weight loss -Patient intends on starting an exercise program once his knee replacement is performed as currently this is inhibiting him from a lot of physical activity and he states he is gained a lot of weight as a result of this DVT prophylaxis -Lovenox SQ twice daily 40 mg CODE STATUS -Full code Charges/Coding Visit Charges Inpatient E&M: 54949 Subs Hosp L2
[2024-05-02 08:16] LABS: Platelet Estimate ADEQUATE (ADEQ)
[2024-05-02 08:17] LABS: Anisocytosis 1+; Ovalocyte 1+; Platelet Morphology CLUMPED
[2024-05-02 08:18] LABS: Stomatocyte 1+
[2024-05-02] MEDS: DULoxetine Hcl 60 MG Capsule PO (09:38)
[2024-05-02] MEDS: Carvedilol 6.25 MG Tablet PO ×2 (09:38→21:03)
[2024-05-02] MEDS: Loratadine 10 MG Tablet PO (09:38)
[2024-05-02] MEDS: Aspirin E.C. 81 MG Tablet PO (09:38)
[2024-05-02] MEDS: Pantoprazole Sodium 40 MG Tablet PO (09:38)
[2024-05-02] MEDS: TICAGRELOR 90 MG TABLET PO ×2 (09:38→21:03)
[2024-05-02] MEDS: Enoxaparin 40 MG/0.4 ML Syringe SC ×2 (09:39→21:02)
[2024-05-02] MEDS: Ezetimibe 10 MG Tablet PO (09:39)
--- NOTE | 2024-05-02 09:39 | PN.CARD_ITS ---
Subjective Subjective Patient seen and evaluated. Appears to be doing much better this morning. Patient is status post ST elevation myocardial infarction involving the left anterior descending artery which was angioplastied and stented. Objective Data Vital Signs: Vital Signs Temp Pulse Resp BP Pulse Ox O2 Del Method O2 Flow Rate 97.6 F L 93 19 H 133/81 H 98 Nasal Cannula 2 05/02/24 06:00 05/02/24 09:00 05/02/24 09:00 05/02/24 09:00 05/02/24 09:00 05/02/24 09:00 05/02/24 09:00 Oxygen Flow Rate (L/min) 2 Oxygen Delivery Method Nasal Cannula Weight: 290 lb 5.581 oz Body Mass Index (BMI) 42.8 Intake & Output: Intake and Output for Last 24 Hours 04/30/24 05/01/24 05/02/24 23:59 23:59 23:59 Intake Total 2110 / 2110 1000 / 1000 Output Total 400 / 400 Balance 1710 / 1710 1000 / 1000 Lab / Micro Data 05/02/24 05:00 05/02/24 05:00 Labs: Laboratory Results - last 24 hr 05/01/24 16:35: WBC 12.8 H, RBC 5.04, Hgb 13.8, Hct 43.0, MCV 85.3, MCH 27.4, MCHC 32.1, RDW Std Deviation 43.3, RDW Coeff of Almita 14.1, Plt Count 192, MPV 11.3, Immature Gran % (Auto) 1.000 H, Neut % (Auto) 95.5 H, Lymph % (Auto) 1.2 L , [place] % (Auto) 1.6, Eos % (Auto) 0.5, Baso % (Auto) 0.2, Absolute Neuts (auto) 12.2 H, Absolute Lymphs (auto) 0.15 L, Nucleated RBC % 0, PT 14.4, INR 1.1, APTT 25.2, Sodium 138, Potassium 3.5, Chloride 104, Carbon Dioxide 24.0, Anion Gap 10, BUN 23 H, Creatinine 2.49 H, Estim Creat Clear Calc 39.82, Est GFR (MDRD) Af Amer 34 L, Est GFR (MDRD) Non-Af 28 L, BUN/Creatinine Ratio 9.2 L, Glucose 103, Calcium 9.1, Magnesium 1.6, Total Bilirubin 0.70, Direct Bilirubin 0.25, AST 18, ALT 19, Alkaline Phosphatase 64, Troponin I High Sens 10, Total Protein 6.4, Albumin 3.5, Globulin 2.9, Lipase 22 05/01/24 20:45: Troponin I High Sens 1884 H* 05/01/24 23:05: Troponin I High Sens 9971 H* 05/02/24 05:00: WBC 23.9 H, RBC 5.00, Hgb 13.8, Hct 42.3, MCV 84.6, MCH 27.6, MCHC 32.6, RDW Std Deviation 43.8, RDW Coeff of [place]mita 14.5, Plt Count 173, MPV 11.1, Immature Gran % (Auto) 1.000 H, Neut % (Auto) 95.6 H, Lymph % (Auto) 0.4 L , [place] % (Auto) 2.5, Eos % (Auto) 0.2, Baso % (Auto) 0.3, Absolute Neuts (auto) 22.9 H, Absolute Lymphs (auto) 0.10 L, Nucleated RBC % 0, Differential Comment , Platelet Estimate ADEQUATE, Plt Morphology Comment CLUMPED, Anisocytosis 1+, Ovalocytes 1+, Stomatocytes 1+, Sodium 138, Potassium 4.7, Chloride 108 H, Carbon Dioxide 23.0, Anion Gap 7, BUN 29 H, Creatinine 2.08 H, Estim Creat Clear Calc 47.63, Est GFR (MDRD) Af Amer 41 L, Est GFR (MDRD) Non-Af 34 L, BUN/Creatinine Ratio 13.9, Glucose 139 H, Calcium 8.2 L, Total Bilirubin 0.50, A ST 113 H, ALT 36, Alkaline Phosphatase 61, Troponin I High Sens 42425 H*, Total Protein 6.2 L, Albumin 3.1 L, Globulin 3.1, Albumin/Globulin Ratio 1.0, Triglycerides 131, Cholesterol 102, LDL Cholesterol 35, VLDL Cholesterol 26, HDL Cholesterol 41 Cardiology Labs/Tests 05/01/24 16:35: WBC 12.8 H, RBC 5.04, Hgb 13.8, Hct 43.0, MCV 85.3, MCH 27.4, MCHC 32.1, Plt Count 192, MPV 11.3, Immature Gran % (Auto) 1.000 H, Neut % (Auto) 95.5 H, Lymph % (Auto) 1.2 L, [place] % (Auto) 1.6, Eos % (Auto) 0.5, Baso % (Auto) 0.2, Absolute Neuts (auto) 12.2 H, Nucleated RBC % 0, PT 14.4, INR 1.1, APTT 25.2, Sodium 138, Potassium 3.5, Chloride 104, Carbon Dioxide 24.0, Anion Gap 10, BUN 23 H, Creatinine 2.49 H, Est GFR (MDRD) Af Amer 34 L, Est GFR (MDRD) Non-Af 28 L, BUN/Creatinine Ratio 9.2 L, Glucose 103, Calcium 9.1, Magnesium 1.6, Total Bilirubin 0.70, Direct Bilirubin 0.25 05/02/24 05:00: WBC 23.9 H, RBC 5.00, Hgb 13.8, Hct 42.3, MCV 84.6, MCH 27.6, MCHC 32.6, Plt Count 173, MPV 11.1, Immature Gran % (Auto) 1.000 H, Neut % (Auto) 95.6 H, Lymph % (Auto) 0.4 L, [place] % (Auto) 2.5, Eos % (Auto) 0.2, Baso % (Auto) 0.3, Absolute Neuts (auto) 22.9 H, Nucleated RBC % 0, Sodium 138, Potassium 4.7, Chloride 108 H, Carbon Dioxide 23.0, Anion Gap 7, BUN 29 H, C reatinine 2.08 H, Est GFR (MDRD) Af Amer 41 L, Est GFR (MDRD) Non-Af 34 L, BUN/Creatinine Ratio 13.9, Glucose 139 H, Calcium 8.2 L, Total Bilirubin 0.50, Triglycerides 131, Cholesterol 102, LDL Cholesterol 35, VLDL Cholesterol 26, HDL Cholesterol 41 Rhythm: EKG: ECHO: Stress Test: Cardiac Cath: PCI: CT Surgery: Holter monitor: EPS: PPM: CXR: Chest CT Scan: Radiography Diagnostic Testing: Radiology Impression Chest CTA 05/01/24 18:35 IMPRESSION: ASHD without evidence for aortic aneurysm, pulmonary embolus or other acute disease. Electronically Signed: Rudy Abraham MD at 19:20 EST , Physical Exam Const alert, oriented x3 and no apparent distress General Appearance: cooperative HEENT hearing grossly normal bilaterally Head and Scalp: atraumatic Eyes EOMs intact bilaterally Neck General: normal visual inspection Chest inspection of chest normal and palpation of chest normal Resp normal respiratory effort Auscultation: clear to auscultation bilaterally Cardio regular rate, regular rhythm, S1 normal heart sound and S2 normal heart sound Jugular Venous Distention: JVD GI normal to inspection, nondistended, normoactive bowel sounds Extremity normal capillary refill and no pedal edema Peripheral Pulses: Yes pulses 2+ throughout and femoral pulses present Skin no rashes or lesions noted Neuro oriented x3 and CN's II-XII intact bilaterally Psych Appearance: grossly normal and appropriate Assessment & Plan Assessment/Plan (1) STEMI (ST elevation myocardial infarction): QUALIFIERS: Involved coronary artery: LAD coronary artery Q ualified Code(s): I21.02 - ST elevation (STEMI) myocardial infarction involving left anterior descending coronary artery PLAN: Patient presented with an ST elevation myocardial infarction. She underwent angioplasty and stenting of the left anterior descending artery. The circumflex artery and right coronary artery appeared to be without significant disease. The plan will be as follows. * Echocardiogram done today demonstrated anterior apical hypokinesis with estimated ejection fraction of 40%. Final pending. * Increase beta-stanley with carvedilol to 6.25 mg twice a day * Continue aspirin * Continue high intensity statin * Continue IV fluids with normal saline at 75 cc an hour due to his renal insufficiency * Further recommendations will depend on his clinical course.
[2024-05-02] MEDS: 0.9% Normal Saline (1000mL) 1,000 ML 75 ML IV (11:23)
--- NOTE | 2024-05-02 11:28 | CASEMGMT ---
LEDA BHATIA Assessment: Face to Face with pt for initial transition planning/care coordination assessment. LEDA BHATIA introduced self and role at [facility], pt voices understanding and consents to assessment. Pt is A&O x4 and answers all questions appropriately at this time. Pt sitting up in chair in no distress. Care providers, pharmacy, and demographics verified/updated. Admitting Dx: STEMI PCP:Fox Urena NP Specialists:Ortho at [facility]; Ana, rheum; Pepe, pain mgmt Preferred Pharmacy: [facility] Insurance: [employer] [place] [employer] Prescription Benefit: yes LNOK: Gigi Cortes, brother Living Arrangements: Pt lives alone in a single story home with 5 steps to enter with a rail. Pt reports he is I in ADL/IADLs and still works. Pt denies concerns at home. Transportation: Pt drives self and denies concerns with transportation. DME:[facility] HHC/SNF: Denies hx of Pt states no concerns with going home at time of dc. Pt had planned to get a TKR. Pt denies need for physical therapy at this time. Therapy in to eval pt. Pt plans to do cardiac rehab. Provided pt with a [employer] savings card with explanation. Pt states no further concerns/needs. CM to follow. Advised pt to ask CM if any further question/concerns/needs arise, voices understanding. Pt Goal: Home, cardiac rehab Plan: Home, cardiac rehab Gabby TOMPKINS CM
[2024-05-02] MEDS: Buprenorphine 10 MCG PATCH.TDWK 1 PATCH TD (12:02)
[2024-05-02] MEDS: Pramipexole Di-HCl 0.25 MG Tablet PO (21:02)
[2024-05-02] MEDS: Atorvastatin Calcium 80 MG Tablet PO (21:03)
[2024-05-02] MEDS: Nortriptyline 10 MG Capsule PO (21:05)
[2024-05-02] MEDS: traZODone 50 MG Tablet 150 MG PO (21:05)
[2024-05-03] MEDS: Loperamide 2 MG Capsule PO (01:52)
[2024-05-03 01:54] VITALS: BP 138/79; PULSE 83; RESP 15; TEMP 36.8; O2SAT 96
[2024-05-03 03:00] VITALS: PULSE 81
[2024-05-03 04:47] LABS: Absolute Neutrophil Count 15.3 X10^3/uL (2.0-7.7); Basophil# 0.03 X10^3/uL; Basophil% 0.2 % (0-1); Eosinophil# 0.59 X10^3/uL; Eosinophils% 3.4 % (0-5); Hematocrit 39.5 % (40-54); Hemoglobin 12.7 g/dL (13.0-16.5); Lymphocyte % 3.5 % (19-41); Mean Corp Hgb Conc 32.2 g/dL (32-36); Mean Corpuscular Volume 83.9 fL (80-94); Mean Platelet Vol. 11.8 fl (6.2-12.0); Monocyte# 0.61 X10^3/uL; Monocyte% 3.5 % (0-10); NRBC Flagged by Analyzer 0 % (0-5); Neutrophil # 15.32 X10^3/uL (2.7-7.7); Neutrophil % 88.4 % (47-70); POSITIVE DIFFERENTIAL YES; Platelet Count 135 K/mm3 (150-450); RBC Distribution Width CV 14.6 % (11.6-14.6); RBC Distribution Width SD 44.2 fl (35.1-43.9); Red Blood Count 4.71 M/mm3 (4.6-6.2); White Blood Count 17.3 K/mm3 (4.4-11.0)
[2024-05-03 04:50] VITALS: BMI 42.2
[2024-05-03] MEDS: Pregabalin 50 MG Capsule 100 MG PO (05:16)
[2024-05-03 05:23] LABS: Anion Gap 5 (5-15); BUN 37 mg/dL (7-18); BUN/Creat Ratio 27.6 RATIO (10-20); Calcium,Total 8.6 mg/dL (8.5-10.1); Chloride 110 mmol/L (98-107); Creatinine, Serum 1.34 mg/dL (0.70-1.30); EST Glomerular Filtration Rate 57 mL/min (>60); Est Glom Filt Rate - Afr Amer 69 mL/min (>60); Estimated Creatinine Clearance 73.27 ml/min; Glucose 90 mg/dL (74-106); Phosphorus 2.7 mg/dL (2.5-4.9); Potassium 4.4 mmol/L (3.5-5.1); Sodium Level 137 mmol/L (136-145)
[2024-05-03 08:00] VITALS: BP 138/88; PULSE 83; RESP 16; TEMP 36.9; O2SAT 93
--- NOTE | 2024-05-03 08:23 | EKG12_ITS ---
Test Reason : AM EKG Blood Pressure : */* mmHG Vent. Rate : 83 BPM Atrial Rate : 83 BPM P-R Int : 152 ms QRS Dur : 104 ms QT Int : 374 ms P-R-T Axes : 64 38 4 degrees QTcB Int : 439 ms Normal sinus rhythm Incomplete right bundle branch block Nonspecific T wave abnormality Abnormal ECG When compared with ECG of 02-May-2024 04:09, MANUAL COMPARISON REQUIRED DATA IS UNCONFIRMED Confirmed by NITISH PRITCHARD, YASMIN ([id number]), commissioning editor VONDA LEAL ([id number]) on 05/04/2024 8:34:23 AM Referred By: Confirmed By: YASMIN TALBERT MD
[2024-05-03] MEDS: Carvedilol 6.25 MG Tablet PO (09:08)
[2024-05-03] MEDS: DULoxetine Hcl 60 MG Capsule PO (09:08)
[2024-05-03] MEDS: Enoxaparin 40 MG/0.4 ML Syringe SC (09:08)
[2024-05-03] MEDS: Loratadine 10 MG Tablet PO (09:08)
[2024-05-03] MEDS: Aspirin E.C. 81 MG Tablet PO (09:09)
[2024-05-03] MEDS: TICAGRELOR 90 MG TABLET PO (09:09)
[2024-05-03] MEDS: Pantoprazole Sodium 40 MG Tablet PO (09:10)
[2024-05-03] MEDS: Tamsulosin HCl 0.4 MG Capsule PO (09:11)
--- NOTE | 2024-05-03 09:43 | PN.CARD_ITS ---
Subjective Subjective Patient seen and evaluated. Doing well. No complaints. Objective Data Vital Signs: Vital Signs Temp Pulse Resp BP Pulse Ox O2 Del Method O2 Flow Rate 98.4 F 83 16 138/88 H 93 Room Air 2 05/03/24 08:00 05/03/24 08:00 05/03/24 08:00 05/03/24 08:00 05/03/24 08:00 05/03/24 08:25 05/02/24 09:00 Oxygen Flow Rate (L/min) 2 Oxygen Delivery Method Room Air Weight: 285 lb 11.505 oz Body Mass Index (BMI) 42.2 Intake & Output: Intake and Output for Last 24 Hours 05/01/24 05/02/24 05/03/24 23:59 23:59 23:59 Intake Total 2110 / 2110 2275.83 / 2275.83 1120 / 1120 Output Total 400 / 400 1075 / 1075 1000 / 1000 Balance 1710 / 1710 1200.83 / 1200.83 120 / 120 Lab / Micro Data 05/03/24 03:23 05/03/24 03:23 Labs: Laboratory Results - last 24 hr 05/03/24 03:23: WBC 17.3 H, RBC 4.71, Hgb 12.7 L, Hct 39.5 L, MCV 83.9, MCH 27.0, MCHC 32.2, RDW Std Deviation 44.2 H, RDW Coeff of Almita 14.6, Plt Count 135 L, MPV 11.8, Immature Gran % (Auto) 1.000 H, Neut % (Auto) 88.4 H, Lymph % (Auto) 3.5 L, [place] % (Auto) 3.5, Eos % (Auto) 3.4, Baso % (Auto) 0.2, Absolute Neuts (auto) 15.3 H, Absolute Lymphs (auto) 0.60 L, Nucleated RBC % 0, Sodium 137, Potassium 4.4, Chloride 110 H, Carbon Dioxide 22.0, Anion Gap 5, BUN 37 H, Creatinine 1.34 H, Estim Creat Clear Calc 73.27, Est GFR (MDRD) Af Amer 69, Est GFR (MDRD) Non-Af 57 L, BUN/Creatinine Ratio 27.6 H, Glucose 90, Calcium 8.6, Phosphorus 2.7, Magnesium 2.0 Cardiology Labs/Tests 05/03/24 03:23: WBC 17.3 H, RBC 4.71, Hgb 12.7 L, Hct 39.5 L, MCV 83.9, MCH 27.0, MCHC 32.2, Plt Count 135 L, MPV 11.8, Immature Gran % (Auto) 1.000 H, Neut % (Auto) 88.4 H, Lymph % (Auto) 3.5 L, [place] % (Auto) 3.5, Eos % (Auto) 3.4, Baso % (Auto) 0.2, Absolute Neuts (auto) 15.3 H, Nucleated RBC % 0, Sodium 137, Potassium 4.4, Chloride 110 H, Carbon Dioxide 22.0, Anion Gap 5, BUN 37 H, C reatinine 1.34 H, Est GFR (MDRD) Af Amer 69, Est GFR (MDRD) Non-Af 57 L, B UN/Creatinine Ratio 27.6 H, Glucose 90, Calcium 8.6, Phosphorus 2.7, Magnesium 2.0 Rhythm: EKG: ECHO: Stress Test: Cardiac Cath: PCI: CT Surgery: Holter monitor: EPS: PPM: CXR: Chest CT Scan: Radiography Diagnostic Testing: Radiology Impression Echocardiogram 05/01/24 20:21 Interpretation Summary Normal left ventricle. Mild to moderate segmental systolic dysfunction (see wall motion). The left ventricular ejection fraction is 40 %. Structurally normal valves. Contrast injection was performed. Ordering Physician: Ayesha Goetz Referring Physician: BEKA KLINE Performed By: Lisa Barron RCS Physical Exam Const alert, oriented x3 and no apparent distress General Appearance: cooperative HEENT hearing grossly normal bilaterally Head and Scalp: atraumatic Eyes EOMs intact bilaterally Neck General: normal visual inspection Chest inspection of chest normal and palpation of chest normal Resp normal respiratory effort Auscultation: clear to auscultation bilaterally Cardio regular rate, regular rhythm, S1 normal heart sound and S2 normal heart sound Jugular Venous Distention: JVD GI normal to inspection, nondistended, normoactive bowel sounds Extremity normal capillary refill and no pedal edema Peripheral Pulses: Yes pulses 2+ throughout and femoral pulses present Skin no rashes or lesions noted Neuro oriented x3 and CN's II-XII intact bilaterally Psych Appearance: grossly normal and appropriate Assessment & Plan Assessment/Plan (1) STEMI (ST elevation myocardial infarction): QUALIFIERS: Involved coronary artery: LAD coronary artery Q ualified Code(s): I21.02 - ST elevation (STEMI) myocardial infarction involving left anterior descending coronary artery PLAN: Patient presented with an ST elevation myocardial infarction. She underwent angioplasty and stenting of the left anterior descending artery. The circumflex artery and right coronary artery appeared to be without significant disease. The plan will be as follows. * Echocardiogram done today demonstrated anterior apical hypokinesis with estimated ejection fraction of 40%. Final pending. * Increase beta-stanley with carvedilol to 6.25 mg twice a day * Continue aspirin * Continue high intensity statin * His creatinine has improved significantly. Will encourage p.o. fluids. He can probably follow-up as an outpatient with a reevaluation of his renal function within the next week. Depending on where it settles an BIRGIT inhibitor or ARB can be added.
--- NOTE | 2024-05-03 10:00 | EKG12_ITS ---
Test Reason : REPEAT EKG Blood Pressure : */* mmHG Vent. Rate : 87 BPM Atrial Rate : 87 BPM P-R Int : 160 ms QRS Dur : 106 ms QT Int : 382 ms P-R-T Axes : 48 8 0 degrees QTcB Int : 459 ms Normal sinus rhythm Low voltage QRS Incomplete right bundle branch block Inferior infarct , age undetermined T wave abnormality, consider lateral ischemia Abnormal ECG When compared with ECG of 03-May-2024 05:54, MANUAL COMPARISON REQUIRED DATA IS UNCONFIRMED Confirmed by NITISH PRITCHARD, YASMIN ([id number]), script editor VONDA LEAL ([id number]) on 05/04/2024 8:33:14 AM Referred By: Confirmed By: YASMIN TALBERT MD
--- NOTE | 2024-05-03 10:30 | PCM.DC.SUM ---
Providers Date of Admission: 05/01/24 Date of Discharge: 05/03/24 Primary Care Physician: MERYL Wall Consultations 05/01/24 20:21 Consult: Cardiology Routine Consulting Provider: Joselin Jensen Reason for Consult: STEMI EMERGENT Consult: Yes MD Notified: Yes Date Notified: 05/01/24 Time Notified: 19:32 Method of Notification: ED Physician Initiated Reason For Visit: STEMI Diagnosis Discharge Diagnosis (1) STEMI (ST elevation myocardial infarction): Status: Acute Code(s): I21.3 - ST elevation (STEMI) myocardial infarction of unspecified site Qualifiers: Involved coronary artery: LAD coronary artery Qualified Code(s): I21.02 - ST elevation (STEMI) myocardial infarction involving left anterior descending coronary artery Medications at Discharge Home Medications coenzyme Q10 100 mg capsule (Co Q-10) 100 mg PO DAILY supplement 04/18/20 cyclobenzaprine 10 mg tablet 10 mg PO QHS PRN PRN muscle spasm 04/18/20 duloxetine 60 mg capsule,delayed release (Cymbalta) 60 mg PO QHS mood 04/18/20 famciclovir 500 mg tablet 500 mg PO BID antiviral 04/18/20 fexofenadine 180 mg tablet 180 mg PO DAILY allergy 04/18/20 glucosamine sulfate 500 mg tablet 500 mg PO DAILY arthritis 04/18/20 guaifenesin 600 mg tablet, extended release 12 hr (Mucinex) 600 mg PO Q12H PRN allergy symptoms 04/18/20 mometasone 50 mcg/actuation nasal spray (Nasonex) 2 spray intranasal DAILY PRN allergy symptoms 04/18/20 omega-3 fatty acids 500 mg capsule 500 mg PO DAILY supplement 04/18/20 pantoprazole 40 mg tablet,delayed release 40 mg PO DAILY reflux 04/18/20 pramipexole 0.25 mg tablet (Mirapex) 0.25 mg PO DAILY RLS 04/18/20 pregabalin 100 mg capsule (Lyrica) 100 mg PO TID nerve pain 04/18/20 vitamin B complex (B Complex-Vitamin B12 tablet) 1 tab PO DAILY supplement 04/18/20 buprenorphine 10 mcg/hour weekly transdermal patch 1 patch topical QWEEK pain 05/02/24 isosorbide dinitrate 30 mg tablet 30 mg PO BID blood presure 05/02/24 lisinopril 40 mg tablet 40 mg PO DAILY Blood pressure 05/02/24 nortriptyline 10 mg capsule 10 mg PO QHS mood 05/02/24 tamsulosin 0.4 mg capsule 0.4 mg PO DAILY prostate 05/02/24 trazodone 150 mg tablet 150 mg PO QHS mood 05/02/24 aspirin 81 mg tablet,delayed release 81 mg PO DAILY@0800 #0 tabs 05/03/24 atorvastatin 80 mg tablet 80 mg PO QHS #30 tabs 05/03/24 carvedilol 6.25 mg tablet 6.25 mg PO BID #60 tabs 05/03/24 ticagrelor 90 mg tablet (Brilinta) 90 mg PO BID #60 tabs 05/03/24 Hospital Course Operations None Procedures 2-D Echocardiogram, Cardiac catheterization and EKG Summary of Care Provided Minutes Spent on Discharge: 38 Hospital Course: Mr. Cortes is a 63-year-old white male with a history of morbid obesity and hypertension who presents emergency department [facility] on 05/01/2024 with chest pain/burning sensation/belching. He had been at [facility] [place] for a planned left total knee arthroplasty on the day of presentation. He said he felt almost drunk while he was getting his preoperative antibiotics and preop testing and his surgical case was deferred as there was concern for possible allergic reaction. He was monitored until about 1 PM at which time he was discharged home but prior to this they did an EKG and there was some concern for changes since his preoperative 1 that was done prior to presentation. They recommended follow-up with his primary care physician and he returned home. He stated at home he began having significant burning in his chest in the midsternal region with no radiation and associated belching. He again reported a drunk feeling but did not have any dizziness, diaphoresis or significant shortness of breath. He did complain of nausea with 1 bout of emesis. He became so weak he was at home laying on the floor and the squad was called. Vital signs in the emergency department showed a temperature of 98.4, heart rate 97, blood pressure 102/62, respiratory rate is 18, sats were 98% on room air. His blood pressure did drop while in the emergency department to 70/60 but improved following 2 L nasal cannula to 95/69. CBC showed a mild leukocytosis with a white count of 12.8 and a normal hemoglobin. CMP showed a BUN of 23 with a serum creatinine of 2.49. Baseline is unknown. Initial troponin was 10. CTA of the chest was performed with no evidence of PE or dissection. EKG in the emergency department initially was normal sinus rhythm with nonspecific changes however he became hypotensive and a repeat EKG showed ST elevations anterior laterally prompting a STEMI call to be initiated. He was taken emergently to the Assistant To The Director at which time he was found to have 99% occlusion of the mid LAD and a AMAIRANI to the mid LAD was performed. After catheterization he was started on Brilinta, aspirin, and high intensity dose statin and admitted to the intensive care unit for monitoring postprocedure. He had few very short runs of VT with the longest being 4 beats. He was able to be transferred out of the ICU to the PCU and continue to be monitored on telemetry without any significant events. He had no recurrence of chest pain and was doing quite well. He is evaluated by cardiac rehab and will continue cardiac rehab after discharge. An echocardiogram was done on 05/02/2024 that showed an EF of 40% with wall motion abnormalities in the territory of the LAD. Valves are structurally normal and no diastolic dysfunction was noted. He was placed on carvedilol 6.25 mg p.o. twice daily, aspirin, Brilinta, and atorvastatin 80 mg daily. We did stop his Zetia and made changes with his antihypertensive regimen at home. His lisinopril was hold at discharge as his creatinine was elevated as noted above at the time of admission. By the time of discharge his creatinine improved to 1.34. The plan is to recheck his blood work for serum creatinine at the end of next week and when he follows up with cardiology they are hopeful that they will be able to add back his lisinopril or start an ARB at that time to maximize goal-directed therapy. We are hopeful that his depressed EF is related to stunned myocardium and he should have recovery with time. The importance of taking dual antiplatelet therapy for 12 months was reiterated extensively with the patient and he voiced understanding. New prescriptions were sent to the pharmacy. He was discharged home in stable condition on 05/03/2024. He is asked to follow-up with his primary care physician within a week and cardiology will call him to schedule outpatient follow-up. The process for cardiac rehab was initiated rise in the hospital and follow-up walker after discharge. I do suspect the patient may have obstructive sleep apnea and would benefit from outpatient polysomnography. Discharge diagnoses: STEMI status post PCI with AMAIRANI to LAD KARRI with unknown baseline serum creatinine Ischemic cardiomyopathy Leukocytosis-suspect reactive and trending down Essential hypertension Hyperlipidemia Psoriatic arthritis Chronic pain Restless leg syndrome Depression Anxiety GERD Morbid obesity Physical Exam Const alert, oriented x3, no apparent distress, no limitations and well nourished; Negative for average body habitus or healthy appearing Constitutional Narrative: Very pleasant, morbidly obese, white male, sitting up in a chair at the bedside, has just gotten cleaned up, appears comfortable, nontoxic General Appearance: cooperative, comfortable, well kempt and well developed Exam Limitations: no limitations Nutritional Appearance: morbidly obese HEENT normocephalic, head/scalp atraumatic, hearing grossly normal bilaterally and moist oral mucous membranes HEENT Narrative: Mallampati 3-4, no thrush Eyes EOMs intact bilaterally Eyes Narrative: No scleral icterus Neck supple Neck Narrative: Trachea midline Resp normal respiratory effort, no retractions, no use of accessory muscles and clear to auscultation bilaterally Auscultation: Negative for rales, rhonchi or wheezes Cardio regular rate, regular rhythm, S1 normal heart sound, S2 normal heart sound, no murmurs, no rub, no gallops and no clicks GI normal to inspection, nondistended, normoactive bowel sounds, soft to palpation and non-tender GI Narrative: Large protuberant abdomen Extremity Extremity Narrative: Right wrist with post catheterization dressing in place, nontender and dressing is clean dry and intact with no surrounding ecchymosis, trace bilateral hand edema and bilateral lower extremity edema, no cyanosis or clubbing Skin skin turgor normal and no jaundice Neuro moves all extremities and no focal motor deficits Speech: speech normal Psych affect normal Psych Narrative: Extremely pleasant, eye contact is good, patient interacts appropriately Weight / BMI Weight Weight: 129.6 kg Body Mass Index (BMI) 42.2 ABG / Lab / Microbiology Data 05/03/24 03:23 05/03/24 03:23 Laboratory: Laboratory Results - last 24 hr 05/03/24 03:23: WBC 17.3 H, RBC 4.71, Hgb 12.7 L, Hct 39.5 L, MCV 83.9, MCH 27.0, MCHC 32.2, RDW Std Deviation 44.2 H, RDW Coeff of [place] 14.6, Plt Count 135 L, MPV 11.8, Immature Gran % (Auto) 1.000 H, Neut % (Auto) 88.4 H, Lymph % (Auto) 3.5 L, [place] % (Auto) 3.5, Eos % (Auto) 3.4, Baso % (Auto) 0.2, Absolute Neuts (auto) 15.3 H, Absolute Lymphs (auto) 0.60 L, Nucleated RBC % 0, Sodium 137, Potassium 4.4, Chloride 110 H, Carbon Dioxide 22.0, Anion Gap 5, BUN 37 H, Creatinine 1.34 H, Estim Creat Clear Calc 73.27, Est GFR (MDRD) Af Amer 69, Est GFR (MDRD) Non-Af 57 L, BUN/Creatinine Ratio 27.6 H, Glucose 90, Calcium 8.6, Phosphorus 2.7, Magnesium 2.0 Radiography Diagnostic Testing: Radiology Impression Echocardiogram 05/01/24 20:21 Interpretation Summary Normal left ventricle. Mild to moderate segmental systolic dysfunction (see wall motion). The left ventricular ejection fraction is 40 %. Structurally normal valves. Contrast injection was performed. Ordering Physician: Ayesha Goetz Referring Physician: BEKA KLINE Performed By: Lisa Barron RCS D/C Instructions Discharge Diet: Low fat / Low cholesterol Discharge Activity: Return to Normal Activity Return to work on: 05/04/24 May resume sexual activity in: No Restrictions Lifting Restrictions: Avoid lifting more than 10 pounds with your right hand for the next 5 days Additional Dressing/Incision Instructions: Okay to take dressing of wrist tomorrow 05/04/2024 DC O2, CPAP, BIPAP Needs Home O2 Discharge instructions: No DC home with Oxygen: No Meaningful Use Info Meaningful Use Meaningful Use Diagnoses (Choose all that apply): AMI AMI/Post PCI/Angioplasty Aspirin given w/in 24hrs of arrival?: Yes ASA at discharge?: Yes Antiplatelet Therapy at Discharge:: Yes Statins at discharge?: Yes Lorne/ARB at discharge?: No Reason Lorne/ARB not ordered:: Worsening renal disease Beta Ashley at discharge?: Yes Done w/ Acute [place] measure.: Yes Documented LVEF (%): 40 Ischemic Stroke Statin Dosing Therapy Reference: STATIN DOSE THERAPY REFERENCE: * Patients > 75 years receive moderate or high dose statin therapy. * Patients 75 years or YOUNGER should receive HIGH intensity statin dose unless contraindicated. You will be required to document reason for non-treatment if statin daily dose does not meet guidelines. HIGH DOSE STATIN THERAPY DAILY Atorvastatin > than or = to 40 mg Rosuvastatin > than or = to 20 mg Amlodipine + Atorvastatin > than or = to 2.5/40 mg Ezetimibe + Simvastatin 10/80 mg Simvastatin 80mg Discharge Plan Admission Admit Date/Time: 05/01/24 19:29 Primary Reason for Your Visit: Chest pain Attending Provider: Maru Meyer Primary Care Provider: Beka Kline NP Consulting Providers: Ayesha Goetz; Joselin Jensen Instructions Additional Instructions / Restrictions: 1. Take all of your medications prescribed to your cardiology appointment 2. Please call your primary care physician and asked that a basic metabolic profile be done at the end of this coming week to recheck your kidney function 3. Cardiology office should call you to set up a follow-up appointment Discharge Orders/Prescriptions Prescriptions: New aspirin 81 mg Tablet,Delayed Release (Dr/Ec) 81 mg PO DAILY@0800 Qty: 0 0RF atorvastatin 80 mg Tablet 80 mg PO QHS Qty: 30 1RF carvedilol 6.25 mg Tablet 6.25 mg PO BID Qty: 60 1RF Brilinta 90 mg Tablet 90 mg PO BID Qty: 60 11RF Continued vitamin B complex [B Complex-Vitamin B12] Tablet 1 tab PO DAILY Patient Comments: Was on hold for surgery cyclobenzaprine 10 mg tablet 10 mg PO QHS PRN PRN (Reason: muscle spasm) pregabalin [Lyrica] 100 mg capsule 100 mg PO TID famciclovir 500 mg tablet 500 mg PO BID mometasone [Nasonex] 50 mcg/actuation spray,non-aerosol 2 spray INTRANASAL DAILY PRN (Reason: allergy symptoms) Rx Instructions: administer into each nostril duloxetine [Cymbalta] 60 mg capsule,delayed release(DR/EC) 60 mg PO QHS pantoprazole 40 mg tablet,delayed release (DR/EC) 40 mg PO DAILY glucosamine sulfate 500 mg tablet 500 mg PO DAILY Patient Comments: Was on hold for surgery Rx Instructions: administer with a meal omega-3 fatty acids 500 mg capsule 500 mg PO DAILY Patient Comments: Was on hold for surgery guaifenesin [Mucinex] 600 mg tablet extended release 12hr 600 mg PO Q12H PRN (Reason: allergy symptoms) Patient Comments: Was on hold for surgery fexofenadine 180 mg tablet 180 mg PO DAILY pramipexole [Mirapex] 0.25 mg tablet 0.25 mg PO DAILY coenzyme Q10 [Co Q-10] 100 mg capsule 100 mg PO DAILY Patient Comments: Was on hold for surgery buprenorphine 10 mcg/hour patch weekly 1 patch topical QWEEK isosorbide dinitrate 30 mg tablet 30 mg PO BID nortriptyline 10 mg capsule 10 mg PO QHS tamsulosin 0.4 mg capsule 0.4 mg PO DAILY trazodone 150 mg tablet 150 mg PO QHS Held lisinopril 40 mg tablet 40 mg PO DAILY Hold Instructions: Until you follow-up with cardiology Discontinued clonidine HCl 0.1 mg tablet 0.1 mg PO QHS ezetimibe [Zetia] 10 mg tablet 10 mg PO DAILY verapamil 180 mg capsule,ext rel. pellets 24 hr 180 mg PO BID Referrals / Follow Up: Jose Syed MD [Med Staff - Active Staff] - See Referral Note (Office should call you to set up an appointment) Beka Kline NP, SEAN-C [Primary Care Provider] - Within 1 Week Disposition Disposition (needs filled in before D/C Order can be placed): Home, Self Care Charges/Coding Visit Charges Inpatient E&M: 15883 Disch Hosp >30min
[2024-05-03 12:00] VITALS: BP 144/97; PULSE 85; RESP 16; TEMP 36.8; O2SAT 98
[2024-05-03 12:59] VITALS: BP 144/97; PULSE 85; RESP 16; TEMP 36.8; O2SAT 98
--- NOTE | 2024-05-04 07:36 | CRPHASE1_ITS ---
Patient Communication Patient Information Former Patient:: Phase I PHII Cardiac Rehab Discussed with Patient:: Yes Guide to Cardiac Rehab Given to Patient:: Yes Cardiac Rehab Facility Choice List Given to Patient:: Yes Communication to Cardiac Rehab Choice Program [facility] PHII:: Communication Given to CR [employer]:: Joselin Jensen Sessions:: 36 sessions - 3 days/wk, 12 weeks Cardiac Rehabilitation Info Program Information Cardiac Rehabilitation Program Information: Cardiac Rehab The cardiac rehab team at [facility] consists of highly skilled exercise physiologists, nurses, respiratory therapists and physicians working together with you. Our purpose is to help you have a full recovery and achieve the goals you set for yourself. Over the years many of our patients have returned to activities they assumed they would never do again! We can help restore your confidence and motivation to make lifestyle changes that can have a significant impact on your health and quality of life! We can help answer questions and concerns you may have about exercise, lifestyle, medications, diet, stress and anxiety which are common following a hospitalization. WE monitor ECG and vital signs during exercise and discuss your progress with you and report to your physician(s). Cardiac Rehab is proven to help reduce readmissions, improve functional capacity and lower recurrence of problems with your heart. Our Cardiac Rehab program is Certified by the [place] [employer]monary [employer] (AACVPR) and Accredited by the [place] [employer] through our [facility]. You can contact us at . We invite you to call us with your questions or to get started in our program. If you have other questions or concerns be sure to ask your physician/provider during your follow-up visit. WE look forward to seeing you!
--- NOTE | 2024-05-04 07:37 | CRPH1.INSTRU ---
General Education Discussed with Patient CAD and cardiac anatomy and function:: Patient communicates acknowledgment Explanation of diagnoses and procedures:: Patient communicates acknowledgment Sign/Symptoms of MA:: Patient communicates acknowledgment Antiplatelet therapy: Patient communicates acknowledgment Proper use of NTG-SL: Patient communicates acknowledgment Emergency procedures and activation of EMS: Patient communicates acknowledgment Compliance of all prescribed medications: Patient communicates acknowledgment Smoking Risk Factors Patient Nicotine/Smoking Risk Factors Are:: Non-smoker Recommendations Recommendations Include:: Previous smoker; encourage continued cessation Response Code Nicotine/Smoking Response Code:: Patient communicates acknowledgment Dyslipidemia Risk Factors Patient Dyslipidemia Risk Factors Are:: Total Cholesterol, Triglycerides, HDL and LDL Recommendations Recommendations Include:: Lipid profile not available, Reviewed NCEP/ATP guidelines and Therapeutic Lifestyle Change dietary guidelines Response Code Dyslipidemia Response Code:: Patient communicates acknowledgment Overweight/Obesity Risk Factors Patient Overweight/Obesity Risk Factors Are:: Obesity - > or = 30 Recommendations Recommendations Include:: Weight loss of 5-10%, Reduced calorie diet and Exercise 5-7 times/week Response Code Overweight/Obesity:: Patient communicates acknowledgment Hypertension Recommendations Recommendations Include:: Maintain BP <130/85, DASH dietary guidelines, Decrease/maintain normal body weight and Moderation of ETOH Response Code Hypertension:: Patient communicates acknowledgment Heart Disease Recommendations Recommendations Include:: Educated family members of their risk and Educated family members of importance of prevention of heart disease Response Code Heart Disease Response Code:: Patient communicates acknowledgment Diabetes Risk Factors Patient Diabetes Risk Factors Are:: No documented hx of diabetes Recommendations Recommendations Include:: Maintain fasting blood sugars 70-110 md/dL, Maintain HgbA1c of 6% or less, Monitor blood sugar as prescribed, Diabetic dietary guidelines and Decrease/maintain body weight Response Code Diabetes:: Patient communicates acknowledgment Metabolic Syndrome Risk Factors Patient Metabolic Syndrome Risk Factors Are [3 of 5]:: Waist circumference > 35 [female] or 40 [male], High triglyceride >150 and Hypertension Recommendations Recommendations Include:: Encouraged follow-up with Primary Care Physician Response Code Metabolic Syndrome Response Code:: Patient communicates acknowledgment Sedentary Risk Factors Patient Sedentary Risk Factors Are:: Lack of regular exercise Recommendations Recommendations Include:: Aerobic exercise 5-7 times/week for 20-30 minutes continuously, Benefits of regular exercise, Discussed home walking program and Monitored Outpatient Cardiac Rehab Response Code Sedentary Response Code:: Patient communicates acknowledgment Stress Risk Factors Patient Stress Risk Factors Are:: Patient denies stress as a risk factor Recommendations Recommendations Include:: Identification of stressors, and assessment of coping skills and Stress management techniques Response Code Stress Response Code:: Patient communicates acknowledgment
--- NOTE | 2024-05-04 09:33 | ECQM.STEMI ---
STEMI STEMI ED Door Time / Other REG STEMI EKG Time (1) STEMI (ST elevation myocardial infarction): Acute 05/01/24 18:31 Balloon/Aspiration Date-Time Date of Balloon/Aspiration:: 05/01/24 Time of Balloon/Aspiration:: 19:43
== END 2024-05-03 13:40 | disposition home or self-care (01) | DRG 322 ==
LOC: ED 18:37 → ICU 22:33 → PCU 05-03 00:41 → ICU 05-05 12:19
PROVIDERS: Admitting Provider Family Medicine; Emergency Provider Emergency Medicine; PCP Nurse Practitioner Primary Care; Visit Provider Internal Medicine
DX: I21.02 ST elevation (STEMI) myocardial infarction involving left anterior descending coronary artery (principal); N17.9 Acute kidney failure, unspecified; Z68.41 Body mass index [BMI] 40.0-44.9, adult; L40.50 Arthropathic psoriasis, unspecified; I12.9 Hypertensive chronic kidney disease with stage 1 through stage 4 chronic kidney disease, or unspecified chronic kidney disease; G25.81 Restless legs syndrome; F32.A Depression, unspecified; K21.9 Gastro-esophageal reflux disease without esophagitis; E78.5 Hyperlipidemia, unspecified; E66.01 Morbid (severe) obesity due to excess calories; N18.2 Chronic kidney disease, stage 2 (mild); I95.9 Hypotension, unspecified; M17.12 Unilateral primary osteoarthritis, left knee; J30.9 Allergic rhinitis, unspecified; E86.0 Dehydration; F41.9 Anxiety disorder, unspecified; I25.5 Ischemic cardiomyopathy; G89.29 Other chronic pain; T36.95XA Adverse effect of unspecified systemic antibiotic, initial encounter; Z79.899 Other long term (current) drug therapy; Z96.651 Presence of right artificial knee joint
CPT/HCPCS: 36415; 71275; 80048; 80053; 80061; 80076; 83690; 83735; 84100; 84484; 85025; 85610; 85730; 92941; 93005; 93306; 93454; 94668; 97162; 97166; 97802; 99152; 99285; C1757; J7030; Q9957; Q9967; A4216; C1725; C1769; C1874; C1887; C1894; C8929; C9606; J1327; J2405; J3490

== ENCOUNTER → 2024-05-11 | Outpatient (CLI) | payer OTHER, SELFPAY ==
--- NOTE | 2024-05-11 08:04 | PCM.CR.HP2 ---
CR - History & Physical General Arrival date:: 05/11/24 Arrival time:: 08:04 Date of Referral:: 05/04/24 Date of CR Evaluation:: 05/11/24 Referring Physician: Dr. Syed Primary Diagnosis: PCI with stenting History of Present Cardiac Event Onset Date PTCA or coronary stenting:: Yes (05/01/24 onset) Vessel: LAD Medications Ambulatory Orders ?Medication ?Instructions ?Recorded coenzyme Q10 100 mg capsule (Co 100 mg PO DAILY supplement 04/18/20 Q-10) cyclobenzaprine 10 mg tablet 10 mg PO QHS PRN PRN muscle spasm 04/18/20 duloxetine 60 mg capsule,delayed 60 mg PO QHS mood 04/18/20 release (Cymbalta) famciclovir 500 mg tablet 500 mg PO BID antiviral 04/18/20 fexofenadine 180 mg tablet 180 mg PO DAILY allergy 04/18/20 glucosamine sulfate 500 mg tablet 500 mg PO DAILY arthritis 04/18/20 guaifenesin 600 mg tablet, 600 mg PO Q12H PRN allergy symptoms 04/18/20 extended release 12 hr (Mucinex) mometasone 50 mcg/actuation nasal 2 spray intranasal DAILY PRN 04/18/20 spray (Nasonex) allergy symptoms omega-3 fatty acids 500 mg capsule 500 mg PO DAILY supplement 04/18/20 pantoprazole 40 mg tablet,delayed 40 mg PO DAILY reflux 04/18/20 release pramipexole 0.25 mg tablet 0.25 mg PO DAILY RLS 04/18/20 (Mirapex) pregabalin 100 mg capsule (Lyrica) 100 mg PO TID nerve pain 04/18/20 vitamin B complex (B 1 tab PO DAILY supplement 04/18/20 Complex-Vitamin B12 tablet) buprenorphine 10 mcg/hour weekly 1 patch topical QWEEK pain 05/02/24 transdermal patch isosorbide dinitrate 30 mg tablet 30 mg PO BID blood presure 05/02/24 lisinopril 40 mg tablet 40 mg PO DAILY Blood pressure 05/02/24 nortriptyline 10 mg capsule 10 mg PO QHS mood 05/02/24 tamsulosin 0.4 mg capsule 0.4 mg PO DAILY prostate 05/02/24 trazodone 150 mg tablet 150 mg PO QHS mood 05/02/24 aspirin 81 mg tablet,delayed 81 mg PO DAILY@0800 #0 tabs 05/03/24 release atorvastatin 80 mg tablet 80 mg PO QHS #30 tabs 05/03/24 carvedilol 6.25 mg tablet 6.25 mg PO BID #60 tabs 05/03/24 ticagrelor 90 mg tablet (Brilinta) 90 mg PO BID #60 tabs 05/03/24 Allergies Allergies naproxen (From Anaprox) Allergy (Mild, Verified 05/01/24 18:25) nausea Sleep Disorder Evaluation Hx of Sleep Apnea: No Do you snore loudly (louder than talking or can be heard through closed doors)?: No Do you often feel tired/ fatigued/ sleepy during daytime?: No Has anyone observed you stop breathing during sleep?: No History of Hypertension (for STOP score): Yes STOP Results: Negative Advanced Directives Advanced Directives Power of Cnc Service Engineer: No Living Will: No Advance Directives Information Provided: No Advance Directives on File: No DNR Order?:: No Past Medical History Covid-19 Screening Physicial Symptoms Other Clinical Concerns Exposure Risk Pertinent Comorbidities Has a serious heart condition:: Yes Past Medical Illness Past Medical History (Updated 05/11/24 @ 00:02 by Heidy Washington) STEMI (ST elevation myocardial infarction) (05/01/24) I21.3 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 History of back surgery Z98.890 S/p bilateral carpal tunnel release Z98.890 S/P arthroscopic surgery of right knee Z98.890 Status post total knee replacement, right Z96.651 Family History Summary Family History Father Myocardial infarction Heart disease Hypertension CAD (coronary artery disease) Mother Heart disease Social History Smoking History Smoking Status: Never smoker Alcohol Use Alcohol Usage: No Occupation Occupation (List type of work in comments):: Employed Hours worked per day:: 11 Hobbies, Recreation, Social Activities Hobbies: None Social Environment Status Marital Status: Single Current Living Arrangements Living Environment:: Alone Children Do any of your children live nearby?: No Safety Do you feel safe in your surroundings?: Yes Assistance Do you need any assistance at home?: no Review of Systems Review of Systems Hints Review of Present Symptoms: Reports Shortness of Breath with Exertion, Dizziness/Lightheadedness, Appetite - Normal, Appetite - Special Diet and Sleep - Normal; Denies Shortness of Breath at Rest, PVD, Operative Discomfort, Angina, Wound Healing, Fatigue, Heart Arrhythmia/Irregularities or Sexual Changes Pain Is Patient Pain Free?: Yes Pain Location: chest, back, upper extremity and lower extremity Pain Level: 12/20 Risk Factor Assessment Chief Complaint Chief Complaint: PCI with stenting Vital Signs Pulse Ox: 94 Blood Pressure: 90/52 Pulse Pulse Rate: 90 Pulse Rhythm: Regular Hypertension Blood Pressure Sitting - Left Arm: 90/52 Stress Stress: Work-related Obesity Height: 5 ft 9 in Weight:: 270 lb Weight in Pounds: 270.0 lbs Body Mass Index (BMI): 39.9 Nutritional Referral for Obesity: Yes Physical Inactivity Physical Inactivity: None Risk Stratification Risk Guidelines: Moderate Risk: Risk Factor for Smoking, Risk Factor for Dyslipidemia, Risk Factor for Diabetes, Risk Factor for Obesity, Risk Factor for Hypertension, Risk Factor for Sedentary Lifestyle and Risk Factor for Depression For Smoking Smoking Risk Guidelines For Dyslipidemia Dyslipidemia Risk Guidelines For Diabetes Mellitus Diabetes Risk Guidelines For Obesity/Overweight Obesity/Overweight Risk Guidelines For Hypertension Hypertension Risk Guidelines For Sedentary Lifestyle Sedentary Lifestyle Risk Guidelines For Depression Depression Risk Guidelines Family History Family History Father Myocardial infarction Heart disease Hypertension CAD (coronary artery disease) Mother Heart disease Motivation Motivation to Participate On a scale of 1 to 10, how prepared are you to commit to attending program?: 10 What do you see as barriers to successfully being able to complete the program?: nothing What do you see as the benefits of succesfully completing the program? In other words, what do you hope to get out of participating in the program?: to be able to go hunting Are there issues you are dealing with that will interfere with completing the program?: no Do you have a spouse or signficant other, family or friends who will help support you to complete the program?: yes
--- NOTE | 2024-05-11 08:10 | CR.ITP_ITS ---
Diagnosis General Information Admitting Diagnosis: PCI with stenting Personal Learning Style:: Audio/Visual Barriers to Learning: No Barriers Stage of change r/t lifestyle modifications:: Contemplation Gave educational material for:: Treating Heart Disease, How The Heart Works, What it means to have Heart Disease, How Coronary Artery Disease is Diagnosed, Heart Procedures, What Heart Medications Do, Risk Factors & Modifications, Living an Active Life, Nutrition, Emotions & Heart Disease, Stress Management & Relaxation and Sleep Disorders & Heart Disease Education/Goals Cardiac Rehabilitation Goals Personal Goals: Initial Assessment: Improve energy level, Participate in home exercise program, Get back to work, or to resume activities faster, Improve knowledge of cardiac disease, Improve muscle strength and endurance, Improve diet and eating habits (eat healthier) and Control risk factors (learn risk factor modification) Scale for measuring improvement of personal goals Diagnosis & Disease Process Outcomes/Goals: Pt IDs own risk factors & lifestyle modifications by Session 10, Verbalizes symptoms of angina & response by session 3., Pt independently manages and Other Additional Outcomes/Goals: Plan/Interventions: Assist Pt to ID & engage in lifestyle modification to reduce CVD risk, Instruct on individual risk factors, Review symptoms of angina & emergency actions, Review secondary diagnosis & identify educational needs. and Other see comment 30 day Reassessments:: Not Met 30 day Reassessments:: Not Met 30 day Reassessments:: Not Met 30 day Reassessments:: Not Met Final Reassessments:: Not Met Safety Referral to Physical Therapy: No Referral to [facility] Case Management: No Fall Risk Assessed:: Yes Assistive Devices:: None Exercise - Initial Assessment Visit Date of Eval: 05/11/24 (initial eval ) Mets: Pre-: >3 METS for 30 minutes by discharge, >5 METS for 30 minutes by discharge, >7 METS for 30 minutes by discharge and Unable to meet goal due to: (see comment below) Physician Prescribed Exercise Modalities: Treadmill, Rower, Schwinn Airdyne AD-7, SciFit Stepper, SciFit Pro- II Ergometer and SciFit Lateral [place] Frequency: 2x/week for 18 weeks [36 sessions] and 3x/week for 12 weeks [36 sessions] Intensity: 60-80% of age predicted maximum heart rate reserve Duration: 30 - 45 minutes Current METSs:: 3 Target Heart Rate:: 93-116 Resting Blood Pressure: 90/52 EKG Type: NSR incomplete RBBB, Twave abnormality Outcomes & Goals Goals:: Verbalizes understanding of THR, RPE & goal METS by session 6, Documents in home exercise log/reports 30 min aerobic 5 day/wk by DC, Demonstrates accurate pulse taking by DC and Other additional outcome/goals: see below Intervention & Plan Exercise Program Goals: Instruct on personal THR & RPE, Instruct on MET level & personal MET goal, Show patient to take own pulse /validate performance until accurate, Instruct on home exercise and Other additional plan/int Physical Activity Home Exercise Physical Activity - Home Exercise: Safe Exercise, Warm-up, Self-monitoring, Cool-Down, Home Exercise > 30 min Daily and Sitting Time <3 hours/daily Outcomes & Goals Outcomes/Goals: Demonstrates correct Warm-up/exercise Cool-Down (S3) if = 2.5 METs, Verbalizes symptoms of exercise intolerance by Session 3 (S3), Demonstrate safe equipment use (S3) & follows exercise prescrition (6) and Other: See below Intervention & Plan Plan/Intervention: Instruct warm-up & cool-down if exercising at > 2 METs, Instruct on symptoms of exercise intolerance & actions to take, Instruct & monitor on saf, Assess intial functional capacity & safety risk and Other See below Nutrition - Initial Assessment Visit Date of Eval: 05/11/24 (initial eval ) Cholesterol/Lipids (Other Core Measures) Determine presence & major risk factors that modify LDL goal: Hypertension or hypertensive medication, Low HDL cholesterol <40 mg/dL*, Family history of premature CHD in Male < 55 years: female <65 yearsFa and Age men > 45 years; women >/= 55 years Outcomes/Goals: Pt IDs own risk factors & lifestyle modifications by Session 10, Verbalizes symptoms of angina & response by session 3., Pt independently manages and Other Additional Outcomes/Goals: Intervention/Plan: Advocate for lipid panel cholesterol medication if applicable, Instruct on personal lipid levels & lipid goals/NCEP guidelines, Instruct on cholesterol and Other additional plan/int Referral to dietitian:: No Diabetes (Other Core Measures) Diabetes Type: Not Applicable Weight Mgt (Other Care) Height: 5 ft 9 in Weight:: 270 lb BMI: 39.9 Diagnosis Overweight/Obesity BMI> 30% ICD-10 E66: Yes Diagnosis High BMI/Morbid Obesity BMI> 35% ICD-10 Z68: Yes Outcomes/Goals: Pt sets, maintains & shows weight loss goal & trend during rehab and Other additional outcomes/goals Intervention/Plan: Instruct on ideal BMI & set weight loss goal w/patient, Assist pt to ID & incorporate diet changes for weight loss by S9, Refer to Structured Weight Loss program as appropriate, Encourage goal of using 250- 300dcal per session for weight loss and Other additional plan/interventions Healthy Eating Habits Will attend diet classes:: Yes Outcomes/Goals:: Consume diet rich in vegs,fruits,whole grain/high fiber,fish,lean meat, Limit sat/trans fats,cholesterol & added salts & sugars and Other additional outcome/goals: Intervention/Plan:: Assess current eating habits and Other Additional plan/interventions Education Gave educational materials for:: Signs & symptoms of hypoglycemia, Signs & symptoms of hyperglycemia, Relate diabetes to coronary artery disease and Healthy eating Core - Initial Assessment Visit Date of Eval: 05/11/24 (initial eval ) Medication Compliance Preventative Medication(s):: Aspirin, BIRGIT inhibitor, Ticagrelor/P2Y12 inhibitor, Statin/lipid and Beta stanley H/O mental health issues: depression, anxiety, or addiction?: Yes Doesn?t believe in the benefits of treatment?: No Believes medications are unnecessary or harmful?: No Has a concern about medication side effects?: No Expresses concern over the cost of medications?: No Outcomes/Goals: Verbalizes medications,desired effect & common side effects @ DC, Pt self-reports following medication regimen, Keeps card in wallet w/medications listed by DC and Other additional outcome/goals: Interventions/plans: Instruct on medication effects & side effects, Review medication list w/patient every two weeks, Instruct importance of taking meds as ordered & assist problem solving and Other additional Tobacco Use Tobacco Use: Non-smoker Hypertension Hypertension Diagnosis:: Hypertension ICD-10 I10 Resting Blood Pressure:: 90/52 [employer] Heart Association Hypertension Guidelines Outcomes/Goals: Able to verbalize/achieve optimal blood pressure <130/80, Incorporates diet changes & exercise for blood pressure control by DC and Other additional outcomes/goals Interventions/plan: Instruct on optimal blood pressure, hypertension & medications, Instruct on effects of sodium, alcohol, stress, exercise &hypertension and Other additional plan/interventions Tobacco Cessation Referral Smoking Cessation Referral:: No Individual Education/Counseling:: No Education Schedule Given:: Yes Psychosocial - Initial Assess VIsit Date of Eval: 05/11/24 (initial eval ) Target Goals Target Goals Psychosocial Test Tool Used:: Raman Zepeda QOL Cardiac and PHQ-9 Questionnaire phq-9 Severity Referral to Behavioral Health PS - Interventions: Yes: Attend Stress Management Classes Outcomes/Goals: See list Psychosocial Outcomes/Goals:: ID's personal stressors & 2 strategies to manage stress by discharge and Other Additional outcome/goals: Intervention/Plan: See List Interventions/Plan:: Assess stressors,coping strategies & signs of derpression on admission, Instruct/assist pt to develop coping & personal stress Mgt strategies, Refer to Behavioral Health if appropriate, Refer to Physician if appropriate, Instruct patient to recognize signs & symptoms of depression, Instruct patient to recog and Other additional plan/intervention Patient Health Questionnaire PHQ-9 Screening Initial Assessment: 1. Little interest or pleasure in doing things: Not at all 2. Feeling down, depressed, or hopeless: Not at all 3. Trouble falling or staying asleep, or sleeping too much: Not at all 4. Feeling tired or having little energy: Not at all 5. Poor appetite or overeating: More than half the days 6. Feeling bad about yourself -- or that you are a failure or have let yourself or your family down: Not at all 7. Trouble concentrating on things, such as reading the newspaper or watching television: Not at all 8. Moving or speaking so slowly that other people could have noticed. Or the opposite - being so fidgety or restless that you have been moving around a lot more than usual: Not at all 9. Thoughts that you would be better off , or of hurting yourself in some way: Not at all How difficult have these problems made it for you to do your work, take care of things at home, or get along with other people?: Not difficult at all Total Score: 2 DESIRE-Q SV Test Statements CAD is a disease of the arteries in the heart: False Examples of risk factors for heart disease: True Angina is chest pain or discomfort: I Don't Know The benefits of resistance training include: True Eating more meat and dairy products: I Don't Know Anti-platelet medications such as aspirin are important: I Don't Know The only effective way to manage stress: False An exercise warm-up slowly increases heart rate: True Prepared, processed foods usually have high sodium: True Depression is common after a heart attack: I Don't Know The statin medications lower cholesterol: True To control blood pressure, lower the amount of sodium: I Don't Know If someone gets chest discomfort during walking: False Transfats are partially hydrogenated vegetable oils: I Don't Know Sleep apnea that is not treated increases the risk: I Don't Know To control cholesterol, one should become a vegetarian: False Someone knows if he/she is exercising at the right level: I Don't Know Diabetes cannot be prevented with exercise & health eating: True Stress is a large risk for heart attack: True A diet that can help lower blood pressure is rich in: True Total Score Total Correct Responses: 11 Self-Efficacy 6-Item Scale Initial Assessment: We would like to know how confident you are in doing certain activities. Please select your confidence level for: Fatigue Select Number: 8 Physical Discomfort or Pain Select Number: 8 Emotional Distress Select Number: 8 Other Symptoms or Health Problems Select Number: 8 Different Tasks and Activities Select Number: 8 Medication Select Number: 8 Total Score:: 8 Nutrition Survey Nutrition Survey Instructions Scoring Instructions Nutrition Survey Initial: Have you lost >10 lbs over the past 2 months without trying?: No Are you following a special diet at home for diabetes, low fat, or low salt?: No Are you interested in meeting with a dietitian for help understanding your diet?: Yes Do you eat less than 3 meals a day?: No Do you eat fatty meats (dougherty, sausage, ribs, etc), fried foods, desserts, large amounts of salad dressings, margarine, butter, or cheese most days?: No Do you have food allergies? [Enter types in comment field]: No Do you eat in restaurants more than 3 times a week?: Yes Do you season food with salt, seasoning salt, or garlic salt?: Yes Do you used canned, boxed, frozen meals, or soups, seasoning packets?: Yes Total Score:: 4 Exercise - 30-day Assessment Physician Prescribed Exercise Modalities: Treadmill, RowerDantene AD-7, SciFit Stepper, SciFit Pro- II Ergometer and SciFit Lateral Restaurant Assistant Manager Exercise - 60-day Assessment Physician Prescribed Exercise Modalities: Treadmill, Rower, Isaacinn Airdyne AD-7, SciFit Stepper, SciFit Pro- II Ergometer and SciFit Lateral Restaurant Assistant Manager Exercise - 90-day Assessment Physician Prescribed Exercise Modalities: Treadmill, Rower, Schwinn Airdyne AD-7, SciFit Stepper, SciFit Pro- II Ergometer and SciFit Lateral Restaurant Assistant Manager Exercise - Final/Discharge Physician Prescribed Exercise Modalities: Treadmill, Rower, Schwinn Airdyne AD-7, SciFit Stepper, SciFit Pro- II Ergometer and SciFit Lateral [place] Frequency: 2x/week for 18 weeks [36 sessions] and 3x/week for 12 weeks [36 sessions] Intensity: 60-80% of age predicted maximum heart rate reserve Current METSs:: 3 Target Heart Rate:: 93-116 Nutrition - 30-Day Assessment Weight Mgt (Other Care) Height: 5 ft 9 in Weight:: 270 lb BMI: 39.9 Nutrition - 60-Day Assessment Weight Mgt (Other Care) Height: 5 ft 9 in Weight:: 270 lb BMI: 39.9 Core - Final Assessment Hypertension Resting Blood Pressure:: 90/52 British Heart Association Hypertension Guidelines Core - 60-Day Assessment Hypertension Resting Blood Pressure:: 90/52 [employer] Hypertension Guidelines Psychosocial - 30-Day Assess Target Goals Target Goals Referral to Behavioral Health PS - Interventions: Yes: Attend Stress Management Classes Psychosocial - 60-Day Assess Target Goals Target Goals Referral to Behavioral Health PS - Interventions: Yes: Attend Stress Management Classes Psychosocial - 90-Day Assess Target Goals Target Goals Referral to Behavioral Health PS - Interventions: Yes: Attend Stress Management Classes Psychosocial - Final Assessmen Target Goals Target Goals Referral to Behavioral Health PS - Interventions: Yes: Attend Stress Management Classes Nutrition - 90-Day Assessment Weight Mgt (Other Care) Height: 5 ft 9 in Weight:: 270 lb BMI: 39.9 Nutrition - Final Assessment Weight Mgt (Other Care) Height: 5 ft 9 in Weight:: 270 lb BMI: 39.9
[2024-05-11 08:34] VITALS: PULSE 90; O2SAT 94
[2024-05-11 08:39] VITALS: BP 90/52; BMI 39.9
[2024-05-11 09:08] VITALS: BP 90/52; BMI 39.9
[2024-05-11 09:09] VITALS: BP 90/52
== END | disposition home or self-care (01) ==
PROVIDERS: PCP Nurse Practitioner Primary Care; Referring Provider Internal Medicine Cardiovascular Disease; Visit Provider Internal Medicine Cardiovascular Disease
DX: I25.10 Atherosclerotic heart disease of native coronary artery without angina pectoris (principal); I25.2 Old myocardial infarction; Z95.5 Presence of coronary angioplasty implant and graft

== ENCOUNTER 2024-06-12 15:15 | Outpatient (RCR) | payer OTHER, SELFPAY ==
[2024-05-11 09:08] VITALS: BMI 39.9
--- NOTE | 2024-06-11 13:41 | PCM.CR.ITP ---
Exercise - Initial Assessment Visit Session #:: 12 Physician Prescribed Exercise Modalities: SciFit Stepper Nutrition - Initial Assessment Weight Mgt (Other Care) Height: 5 ft 9 in Weight:: 269 lb 8 oz BMI: 39.8 Psychosocial - Initial Assess Target Goals Target Goals Referral to Behavioral Health PS - Interventions: Yes: Attend Stress Management Classes Patient Health Questionnaire PHQ-9 Screening 30-Day Re-eval Assessment: 1. Little interest or pleasure in doing things: Not at all 2. Feeling down, depressed, or hopeless: Not at all 3. Trouble falling or staying asleep, or sleeping too much: Not at all 4. Feeling tired or having little energy: Not at all 5. Poor appetite or overeating: More than half the days 6. Feeling bad about yourself -- or that you are a failure or have let yourself or your family down: Not at all 7. Trouble concentrating on things, such as reading the newspaper or watching television: Not at all 8. Moving or speaking so slowly that other people could have noticed. Or the opposite - being so fidgety or restless that you have been moving around a lot more than usual: Not at all 9. Thoughts that you would be better off , or of hurting yourself in some way: Not at all How difficult have these problems made it for you to do your work, take care of things at home, or get along with other people?: Not difficult at all Total Score: 2 Self-Efficacy 6-Item Scale 30-Day Re-eval Assessment: We would like to know how confident you are in doing certain activities. Please select your confidence level for: Fatigue Select Number: 8 Physical Discomfort or Pain Select Number: 8 Emotional Distress Select Number: 8 Other Symptoms or Health Problems Select Number: 8 Different Tasks and Activities Select Number: 8 Medication Select Number: 8 Total Score:: 8 Nutrition Survey Nutrition Survey Instructions Scoring Instructions Exercise - 30-day Assessment Visit Date of Eval: 06/11/24 Session #:: 12 Physician Prescribed Exercise Modalities: SciFit Stepper Frequency: 3x/week for 12 weeks [36 sessions] Intensity: 60-80% of age predicted maximum heart rate reserve Duration: 30 - 45 minutes Current METSs:: 2.5 Target Heart Rate:: 93-116 Current RPE:: 11-13 Maximum Excercise HR:: 100 Resting Blood Pressure: 152/82 Maximum Exercise Blood Pressure: 154/80 EKG Type: NSR to ST with BBB and isolated PVC Outcomes & Goals Goals:: Verbalizes understanding of THR, RPE & goal METS by session 6, Documents in home exercise log/reports 30 min aerobic 5 day/wk by DC and Demonstrates accurate pulse taking by DC Intervention & Plan Exercise Program Goals: Instruct on personal THR & RPE, Instruct on MET level & personal MET goal, Show patient to take own pulse /validate performance until accurate and Instruct on home exercise Physical Activity Home Exercise Physical Activity - Home Exercise: Safe Exercise, Warm-up, Self-monitoring, Cool-Down, Home Exercise > 30 min Daily and Sitting Time <3 hours/daily Outcomes & Goals Outcomes/Goals: Demonstrates correct Warm-up/exercise Cool-Down (S3) if = 2.5 METs, Verbalizes symptoms of exercise intolerance by Session 3 (S3), Demonstrate safe equipment use (S3) & follows exercise prescrition (6) and Other: See below Intervention & Plan Plan/Intervention: Instruct warm-up & cool-down if exercising at > 2 METs, Instruct on symptoms of exercise intolerance & actions to take, Instruct & monitor on saf, Assess intial functional capacity & safety risk and Other See below 30-day Reassessments 30 day Reassessments:: Progressing Reassessment Notes & Comments:: RPE explained to pt. Pt demonstrates understanding Exercise - 60-day Assessment Physician Prescribed Exercise Modalities: SciFit Stepper Exercise - 90-day Assessment Physician Prescribed Exercise Modalities: SciFit Stepper Exercise - Final/Discharge Physician Prescribed Exercise Modalities: SciFit Stepper Nutrition - 30-Day Assessment Program Goals Nutrition Program Goals Patient has diagnosis of Hyperlipidemia (ICD E78)?: No Visit Date of Eval: 06/11/24 Session #:: 12 Cholesterol/Lipids (Other Core Measures) Determine presence & major risk factors that modify LDL goal: Hypertension or hypertensive medication, Low HDL cholesterol <40 mg/dL*, Family history of premature CHD in Male < 55 years: female <65 yearsFa and Age men > 45 years; women >/= 55 years Outcomes/Goals: Pt IDs own risk factors & lifestyle modifications by Session 10, Verbalizes symptoms of angina & response by session 3., Pt independently manages and Other Additional Outcomes/Goals: Intervention/Plan: Advocate for lipid panel cholesterol medication if applicable, Instruct on personal lipid levels & lipid goals/NCEP guidelines, Instruct on cholesterol and Other additional plan/int Referral to dietitian:: Yes (referral sent to nutritional services.) Diabetes (Other Core Measures) Diabetes Type: Not Applicable Weight Mgt (Other Care) Height: 5 ft 9 in Weight:: 269 lb 8 oz BMI: 39.8 Diagnosis Overweight/Obesity BMI> 30% ICD-10 E66: Yes Diagnosis High BMI/Morbid Obesity BMI> 35% ICD-10 Z68: Yes Outcomes/Goals: Pt sets, maintains & shows weight loss goal & trend during rehab and Other additional outcomes/goals Intervention/Plan: Instruct on ideal BMI & set weight loss goal w/patient, Assist pt to ID & incorporate diet changes for weight loss by S9, Refer to Structured Weight Loss program as appropriate, Encourage goal of using 250-300dcal per session for weight loss and Other additional plan/interventions Healthy Eating Habits Will attend diet classes:: Yes Outcomes/Goals:: Consume diet rich in vegs,fruits,whole grain/high fiber,fish,lean meat, Limit sat/trans fats,cholesterol & added salts & sugars and Other additional outcome/goals: Intervention/Plan:: Assess current eating habits and Other Additional plan/interventions 30-day Reassessments:: Progressing Reassessment Notes & Comments:: Referral sent to nutritional services. Pt is also scheduled to attend nutrition class. Education Gave educational materials for:: Signs & symptoms of hypoglycemia, Signs & symptoms of hyperglycemia, Relate diabetes to coronary artery disease and Healthy eating Nutrition - 60-Day Assessment Weight Mgt (Other Care) Height: 5 ft 9 in Weight:: 269 lb 8 oz BMI: 39.8 Core - 30-Day Assessment Visit Date of Eval: 06/11/24 Session #:: 12 Medication Compliance Preventative Medication(s):: Aspirin, BIRGIT inhibitor, Ticagrelor/P2Y12 inhibitor, Statin/lipid and Beta stanley H/O mental health issues: depression, anxiety, or addiction?: Yes Doesn?t believe in the benefits of treatment?: No Believes medications are unnecessary or harmful?: No Has a concern about medication side effects?: No Expresses concern over the cost of medications?: No Outcomes/Goals: Verbalizes medications,desired effect & common side effects @ DC, Pt self-reports following medication regimen, Keeps card in wallet w/medications listed by DC and Other additional outcome/goals: Interventions/plans: Instruct on medication effects & side effects, Review medication list w/patient every two weeks, Instruct importance of taking meds as ordered & assist problem solving and Other additional Tobacco Use Tobacco Use: Non-smoker Hypertension Hypertension Diagnosis:: Hypertension ICD-10 I10 Resting Blood Pressure:: 152/82 [place] [employer] Hypertension Guidelines Peak Exercise Blood Pressure:: 154/80 Outcomes/Goals: Able to verbalize/achieve optimal blood pressure <130/80, Incorporates diet changes & exercise for blood pressure control by DC and Other additional outcomes/goals Interventions/plan: Instruct on optimal blood pressure, hypertension & medications, Instruct on effects of sodium, alcohol, stress, exercise &hypertension and Other additional plan/interventions 30 day Reassessments:: Progressing Reassessment Notes & Comments:: Pt's BP's are elevated. Dr. Syed's office notified. Will continue to monitor. Tobacco Cessation Referral Smoking Cessation Referral:: No Individual Education/Counseling:: No Education Schedule Given:: Yes Psychosocial - 30-Day Assess VIsit Date of Eval: 06/11/24 Session #:: 12 Target Goals Target Goals Psychosocial Test Tool Used:: [employer] QOL Cardiac and PHQ-9 Questionnaire phq-9 Severity Referral to Behavioral Health PS - Interventions: Yes: Attend Stress Management Classes Outcomes/Goals: See list Psychosocial Outcomes/Goals:: ID's personal stressors & 2 strategies to manage stress by discharge and Other Additional outcome/goals: Intervention/Plan: See List Interventions/Plan:: Assess stressors,coping strategies & signs of derpression on admission, Instruct/assist pt to develop coping & personal stress Mgt strategies, Refer to Behavioral Health if appropriate, Refer to Physician if appropriate, Instruct patient to recognize signs & symptoms of depression, Instruct patient to recog and Other additional plan/intervention 30-day Reassessments: 30 day Reassessments:: Progressing Reassessment Notes & Comments:: Pt denies any psychosocial issues at this time. Psychosocial - 60-Day Assess Target Goals Target Goals Referral to Behavioral Health PS - Interventions: Yes: Attend Stress Management Classes Outcomes/Goals: See list Psychosocial Outcomes/Goals:: ID's personal stressors & 2 strategies to manage stress by discharge and Other Additional outcome/goals: Psychosocial - 90-Day Assess Target Goals Target Goals Referral to Behavioral Health PS - Interventions: Yes: Attend Stress Management Classes Psychosocial - Final Assessmen Target Goals Target Goals Referral to Behavioral Health PS - Interventions: Yes: Attend Stress Management Classes Nutrition - 90-Day Assessment Weight Mgt (Other Care) Height: 5 ft 9 in Weight:: 269 lb 8 oz BMI: 39.8 Nutrition - Final Assessment Weight Mgt (Other Care) Height: 5 ft 9 in Weight:: 269 lb 8 oz BMI: 39.8
[2024-06-11 13:53] VITALS: BP 152/82; BMI 39.8
== END 2024-06-12 23:59 ==
LOC: CR 15:15
PROVIDERS: PCP Nurse Practitioner Primary Care; Referring Provider Internal Medicine Cardiovascular Disease; Visit Provider Internal Medicine Cardiovascular Disease
DX: Z95.5 Presence of coronary angioplasty implant and graft (principal); I21.02 ST elevation (STEMI) myocardial infarction involving left anterior descending coronary artery; I25.10 Atherosclerotic heart disease of native coronary artery without angina pectoris

== ENCOUNTER 2024-07-10 15:15 | Outpatient (RCR) | payer OTHER, SELFPAY ==
[2024-06-11 13:53] VITALS: BMI 39.8
[2024-06-13 01:34] VITALS: BP 152/82
--- NOTE | 2024-07-09 07:43 | CR.ITP_ITS ---
Exercise - Initial Assessment Physician Prescribed Exercise Modalities: MPOWER Mobile Stepper Nutrition - Initial Assessment Weight Mgt (Other Care) Height: 5 ft 9 in Weight:: 266 lb BMI: 39.2 Psychosocial - Initial Assess Target Goals Target Goals Referral to Behavioral Health PS - Interventions: Yes: Attend Stress Management Classes Patient Health Questionnaire PHQ-9 Screening 60-Day Re-eval Assessment: 1. Little interest or pleasure in doing things: Not at all 2. Feeling down, depressed, or hopeless: Not at all 3. Trouble falling or staying asleep, or sleeping too much: Not at all 4. Feeling tired or having little energy: Not at all 5. Poor appetite or overeating: More than half the days 6. Feeling bad about yourself -- or that you are a failure or have let yourself or your family down: Not at all 7. Trouble concentrating on things, such as reading the newspaper or watching television: Not at all 8. Moving or speaking so slowly that other people could have noticed. Or the opposite - being so fidgety or restless that you have been moving around a lot more than usual: Not at all 9. Thoughts that you would be better off , or of hurting yourself in some way: Not at all How difficult have these problems made it for you to do your work, take care of things at home, or get along with other people?: Not difficult at all Total Score: 2 Self-Efficacy 6-Item Scale 60-Day Re-eval Assessment: We would like to know how confident you are in doing certain activities. Please select your confidence level for: Fatigue Select Number: 8 Physical Discomfort or Pain Select Number: 8 Emotional Distress Select Number: 8 Other Symptoms or Health Problems Select Number: 8 Different Tasks and Activities Select Number: 8 Medication Select Number: 8 Total Score:: 8 Nutrition Survey Nutrition Survey Instructions Scoring Instructions Exercise - 30-day Assessment Physician Prescribed Exercise Modalities: MPOWER Mobile Stepper Exercise - 60-day Assessment Visit Date of Eval: 07/09/24 Session #:: 23 Physician Prescribed Exercise Modalities: MPOWER Mobile Stepper Frequency: 3x/week for 12 weeks [36 sessions] Intensity: 60-80% of age predicted maximum heart rate reserve Duration: 30 - 45 minutes Current METSs:: 4 Target Heart Rate:: 93-116 Current RPE:: 11-13 Maximum Excercise HR:: 125 Resting Blood Pressure: 124/72 Maximum Exercise Blood Pressure: 168/88 EKG Type: NSR to ST with BBB with rare PAC/PVC Outcomes & Goals Goals:: Verbalizes understanding of THR, RPE & goal METS by session 6, Documents in home exercise log/reports 30 min aerobic 5 day/wk by DC, Demonstrates accurate pulse taking by DC and Other additional outcome/goals: see below Intervention & Plan Exercise Program Goals: Instruct on personal THR & RPE, Instruct on MET level & personal MET goal, Show patient to take own pulse /validate performance until accurate, Instruct on home exercise and Other additional plan/int Physical Activity Home Exercise Physical Activity - Home Exercise: Safe Exercise, Warm-up, Self-monitoring, Cool-Down, Home Exercise > 30 min Daily and Sitting Time <3 hours/daily Outcomes & Goals Outcomes/Goals: Demonstrates correct Warm-up/exercise Cool-Down (S3) if = 2.5 METs, Verbalizes symptoms of exercise intolerance by Session 3 (S3), Demonstrate safe equipment use (S3) & follows exercise prescrition (6) and Other: See below Intervention & Plan Plan/Intervention: Instruct warm-up & cool-down if exercising at > 2 METs, Instruct on symptoms of exercise intolerance & actions to take, Instruct & monitor on saf, Assess intial functional capacity & safety risk and Other See below 30-day Reassessments 30 day Reassessments:: Progressing Reassessment Notes & Comments:: Proper warm up and cool down demonstrated to pt. Pt is able to return demonstration. Exercise - 90-day Assessment Physician Prescribed Exercise Modalities: SciFit Stepper Exercise - Final/Discharge Physician Prescribed Exercise Modalities: SciFit Stepper Nutrition - 30-Day Assessment Weight Mgt (Other Care) Height: 5 ft 9 in Weight:: 266 lb BMI: 39.2 Nutrition - 60-Day Assessment Program Goals Nutrition Program Goals Patient has diagnosis of Hyperlipidemia (ICD E78)?: No Visit Date of Eval: 07/09/24 Session #:: 23 Cholesterol/Lipids (Other Core Measures) Determine presence & major risk factors that modify LDL goal: Hypertension or hypertensive medication, Low HDL cholesterol <40 mg/dL*, Family history of premature CHD in Male < 55 years: female <65 yearsFa and Age men > 45 years; women >/= 55 years Outcomes/Goals: Pt IDs own risk factors & lifestyle modifications by Session 10, Verbalizes symptoms of angina & response by session 3., Pt independently manages and Other Additional Outcomes/Goals: Intervention/Plan: Advocate for lipid panel cholesterol medication if applicable, Instruct on personal lipid levels & lipid goals/NCEP guidelines, Instruct on cholesterol and Other additional plan/int Referral to dietitian:: Yes (referral sent ) 30-day Reassessments:: Met Reassessment Notes & Comments:: Pt has been referred to nutritional services. Diabetes (Other Core Measures) Diabetes Type: Not Applicable Weight Mgt (Other Care) Height: 5 ft 9 in Weight:: 266 lb BMI: 39.2 Diagnosis Overweight/Obesity BMI> 30% ICD-10 E66: Yes Diagnosis High BMI/Morbid Obesity BMI> 35% ICD-10 Z68: Yes Outcomes/Goals: Pt sets, maintains & shows weight loss goal & trend during rehab and Other additional outcomes/goals Intervention/Plan: Instruct on ideal BMI & set weight loss goal w/patient, Assist pt to ID & incorporate diet changes for weight loss by S9, Refer to Structured Weight Loss program as appropriate, Encourage goal of using 250- 300dcal per session for weight loss and Other additional plan/interventions 30 day Reassessments:: Progressing Reassessment Notes & Comments:: Pt has lost 3.5 lbs this month Healthy Eating Habits Will attend diet classes:: Yes Outcomes/Goals:: Consume diet rich in vegs,fruits,whole grain/high fiber,fish,lean meat, Limit sat/trans fats,cholesterol & added salts & sugars and Other additional outcome/goals: Intervention/Plan:: Assess current eating habits and Other Additional plan/interventions 30-day Reassessments:: Met Reassessment Notes & Comments:: Pt attended nutrition class and has been re ferred to nutritional services Education Gave educational materials for:: Signs & symptoms of hypoglycemia, Signs & symptoms of hyperglycemia, Relate diabetes to coronary artery disease and Healthy eating Core - 60-Day Assessment Visit Date of Eval: 07/09/24 Session #:: 23 Medication Compliance Preventative Medication(s):: Aspirin, BIRGIT inhibitor, Ticagrelor/P2Y12 inhibitor, Statin/lipid and Beta stanley H/O mental health issues: depression, anxiety, or addiction?: No Doesn?t believe in the benefits of treatment?: No Believes medications are unnecessary or harmful?: No Has a concern about medication side effects?: No Expresses concern over the cost of medications?: No Outcomes/Goals: Verbalizes medications,desired effect & common side effects @ DC, Pt self-reports following medication regimen, Keeps card in wallet w/medications listed by DC and Other additional outcome/goals: Interventions/plans: Instruct on medication effects & side effects, Review medication list w/patient every two weeks, Instruct importance of taking meds as ordered & assist problem solving and Other additional Tobacco Use Tobacco Use: Non-smoker Hypertension Hypertension Diagnosis:: Hypertension ICD-10 I10 Resting Blood Pressure:: 124/72 [place] [employer] Hypertension Guidelines Peak Exercise Blood Pressure:: 168/88 Outcomes/Goals: Able to verbalize/achieve optimal blood pressure <130/80, Incorporates diet changes & exercise for blood pressure control by DC and Other additional outcomes/goals Interventions/plan: Instruct on optimal blood pressure, hypertension & medications, Instruct on effects of sodium, alcohol, stress, exercise &hypertension and Other additional plan/interventions 30 day Reassessments:: Progressing Reassessment Notes & Comments:: Pt's BP's have improved. Continue to encourage weight loss and a low sodium diet. Tobacco Cessation Referral Smoking Cessation Referral:: No Individual Education/Counseling:: No Education Schedule Given:: Yes Psychosocial - 30-Day Assess Target Goals Target Goals Referral to Behavioral Health PS - Interventions: Yes: Attend Stress Management Classes Outcomes/Goals: See list Psychosocial Outcomes/Goals:: ID's personal stressors & 2 strategies to manage stress by discharge and Other Additional outcome/goals: Psychosocial - 60-Day Assess VIsit Date of Eval: 07/09/24 Session #:: 23 Target Goals Target Goals Psychosocial Test Tool Used:: [employer] QOL Cardiac and PHQ-9 Questionnaire phq-9 Severity Referral to Behavioral Health PS - Interventions: Yes: Attend Stress Management Classes Outcomes/Goals: See list Psychosocial Outcomes/Goals:: ID's personal stressors & 2 strategies to manage stress by discharge and Other Additional outcome/goals: Intervention/Plan: See List Interventions/Plan:: Assess stressors,coping strategies & signs of derpression on admission, Instruct/assist pt to develop coping & personal stress Mgt strategies, Refer to Behavioral Health if appropriate, Refer to Physician if appropriate, Instruct patient to recognize signs & symptoms of depression and Instruct patient to recog 30-day Reassessments: 30 day Reassessments:: Met Reassessment Notes & Comments:: Pt denies any psychosocial issues at this time. Psychosocial - 90-Day Assess Target Goals Target Goals Referral to Behavioral Health PS - Interventions: Yes: Attend Stress Management Classes Psychosocial - Final Assessmen Target Goals Target Goals Referral to Behavioral Health PS - Interventions: Yes: Attend Stress Management Classes Nutrition - 90-Day Assessment Weight Mgt (Other Care) Height: 5 ft 9 in Weight:: 266 lb BMI: 39.2 Nutrition - Final Assessment Weight Mgt (Other Care) Height: 5 ft 9 in Weight:: 266 lb BMI: 39.2
[2024-07-09 07:51] VITALS: BP 124/72; BMI 39.2
[2024-07-09 08:00] VITALS: BP 124/72
== END 2024-07-10 23:59 ==
LOC: CR 15:15
PROVIDERS: PCP Nurse Practitioner Primary Care; Referring Provider Internal Medicine Cardiovascular Disease; Visit Provider Internal Medicine Cardiovascular Disease
DX: Z95.5 Presence of coronary angioplasty implant and graft (principal); I21.02 ST elevation (STEMI) myocardial infarction involving left anterior descending coronary artery; I25.10 Atherosclerotic heart disease of native coronary artery without angina pectoris
CPT/HCPCS: 93798

== ENCOUNTER 2024-07-29 15:15 | Outpatient (RCR) | payer OTHER, SELFPAY ==
[2024-07-09 07:51] VITALS: BMI 39.2
[2024-07-11 01:00] VITALS: BP 124/72; BP 152/82
--- NOTE | 2024-07-31 07:04 | CR.ITP_ITS ---
Exercise - Initial Assessment Physician Prescribed Exercise Modalities: DermApproved Stepper Nutrition - Initial Assessment Weight Mgt (Other Care) Height: 5 ft 9 in Weight:: 256 lb BMI: 37.8 Psychosocial - Initial Assess Target Goals Target Goals Referral to Behavioral Health PS - Interventions: Yes: Attend Stress Management Classes Patient Health Questionnaire PHQ-9 Screening 90-Day Re-eval Assessment: 1. Little interest or pleasure in doing things: Not at all 2. Feeling down, depressed, or hopeless: Not at all 3. Trouble falling or staying asleep, or sleeping too much: Not at all 4. Feeling tired or having little energy: Not at all 5. Poor appetite or overeating: More than half the days 6. Feeling bad about yourself -- or that you are a failure or have let yourself or your family down: Not at all 7. Trouble concentrating on things, such as reading the newspaper or watching television: Not at all 8. Moving or speaking so slowly that other people could have noticed. Or the opposite - being so fidgety or restless that you have been moving around a lot more than usual: Not at all 9. Thoughts that you would be better off , or of hurting yourself in some way: Not at all How difficult have these problems made it for you to do your work, take care of things at home, or get along with other people?: Not difficult at all Total Score: 2 Self-Efficacy 6-Item Scale 90-Day Re-eval Assessment: We would like to know how confident you are in doing certain activities. Please select your confidence level for: Fatigue Select Number: 8 Physical Discomfort or Pain Select Number: 8 Emotional Distress Select Number: 8 Other Symptoms or Health Problems Select Number: 8 Different Tasks and Activities Select Number: 8 Medication Select Number: 8 Total Score:: 8 Nutrition Survey Nutrition Survey Instructions Scoring Instructions Exercise - 30-day Assessment Physician Prescribed Exercise Modalities: DermApproved Stepper Exercise - 60-day Assessment Physician Prescribed Exercise Modalities: DermApproved Stepper Exercise - 90-day Assessment Visit Date of Eval: 07/31/24 Session #:: 31 Physician Prescribed Exercise Modalities: DermApproved Stepper Frequency: 3x/week for 12 weeks [36 sessions] Intensity: 60-80% of age predicted maximum heart rate reserve Duration: 30 - 45 minutes Current METSs:: 4.1 Target Heart Rate:: 93-124 Current RPE:: 11-13 Maximum Excercise HR:: 127 Resting Blood Pressure: 114/72 Maximum Exercise Blood Pressure: 138/80 EKG Type: NSR-ST w/BBB w/rare PAC/PVC Outcomes & Goals Goals:: Verbalizes understanding of THR, RPE & goal METS by session 6, Documents in home exercise log/reports 30 min aerobic 5 day/wk by DC, Demonstrates accurate pulse taking by DC and Other additional outcome/goals: see below Intervention & Plan Exercise Program Goals: Instruct on personal THR & RPE, Instruct on MET level & personal MET goal, Show patient to take own pulse /validate performance until accurate, Instruct on home exercise and Other additional plan/int Physical Activity Home Exercise Physical Activity - Home Exercise: Safe Exercise, Warm-up, Self-monitoring, Cool-Down, Home Exercise > 30 min Daily and Sitting Time <3 hours/daily Outcomes & Goals Outcomes/Goals: Demonstrates correct Warm-up/exercise Cool-Down (S3) if = 2.5 METs, Verbalizes symptoms of exercise intolerance by Session 3 (S3), Demonstrate safe equipment use (S3) & follows exercise prescrition (6) and Other: See below Intervention & Plan Plan/Intervention: Instruct warm-up & cool-down if exercising at > 2 METs, Instruct on symptoms of exercise intolerance & actions to take, Instruct & monitor on saf, Assess intial functional capacity & safety risk and Other See below 30-day Reassessments 30 day Reassessments:: Progressing Reassessment Notes & Comments:: Pt has done very well. PT has been able to i ncrease his exercise workloads and understands the benefits of exercise. Pt was using a walker and is now only using a cane due to his exercise in rehab. Will continue to encourage pt. Will discuss phase III upon graduation. Exercise - Final/Discharge Physician Prescribed Exercise Modalities: SciFit Stepper Nutrition - 30-Day Assessment Weight Mgt (Other Care) Height: 5 ft 9 in Weight:: 256 lb BMI: 37.8 Nutrition - 60-Day Assessment Weight Mgt (Other Care) Height: 5 ft 9 in Weight:: 256 lb BMI: 37.8 Core - 30-Day Assessment Hypertension [employer] Hypertension Guidelines Reassessment Notes & Comments:: Pt's BP's are improving. Will continue to encourage weight loss and a low sodium diet. Core - Final Assessment Hypertension [employer] Hypertension Guidelines Reassessment Notes & Comments:: Pt's BP's are improving. Will continue to encourage weight loss and a low sodium diet. Core - 90 Day Assessment Visit Date of Evmiguel: 07/31/24 Session #:: 31 Medication Compliance Preventative Medication(s):: Aspirin, BIRGIT inhibitor, Ticagrelor/P2Y12 inhibitor, Statin/lipid and Beta stanley H/O mental health issues: depression, anxiety, or addiction?: No Doesn?t believe in the benefits of treatment?: No Believes medications are unnecessary or harmful?: No Has a concern about medication side effects?: No Expresses concern over the cost of medications?: No Outcomes/Goals: Verbalizes medications,desired effect & common side effects @ DC, Pt self-reports following medication regimen, Keeps card in wallet w/medications listed by DC and Other additional outcome/goals: Interventions/plans: Instruct on medication effects & side effects, Review medication list w/patient every two weeks, Instruct importance of taking meds as ordered & assist problem solving and Other additional Tobacco Use Tobacco Use: Non-smoker Hypertension Hypertension Diagnosis:: Hypertension ICD-10 I10 Resting Blood Pressure:: 114/72 [employer] [employer] Hypertension Guidelines Peak Exercise Blood Pressure:: 138/80 Outcomes/Goals: Able to verbalize/achieve optimal blood pressure <130/80, Incorporates diet changes & exercise for blood pressure control by DC and Other additional outcomes/goals Interventions/plan: Instruct on optimal blood pressure, hypertension & medications, Instruct on effects of sodium, alcohol, stress, exercise &hypertension and Other additional plan/interventions 30 day Reassessments:: Progressing Reassessment Notes & Comments:: Pt's BP's are improving. Will continue to encourage weight loss and a low sodium diet. Tobacco Cessation Referral Smoking Cessation Referral:: No Individual Education/Counseling:: No Education Schedule Given:: Yes Psychosocial - 30-Day Assess Target Goals Target Goals Referral to Behavioral Health PS - Interventions: Yes: Attend Stress Management Classes Psychosocial - 60-Day Assess Target Goals Target Goals Referral to Behavioral Health PS - Interventions: Yes: Attend Stress Management Classes Psychosocial - 90-Day Assess Target Goals Target Goals Psychosocial Test Tool Used:: [employer] QOL Cardiac and PHQ-9 Questionnaire phq-9 Severity Referral to Behavioral Health PS - Interventions: Yes: Attend Stress Management Classes Outcomes/Goals: See list Psychosocial Outcomes/Goals:: ID's personal stressors & 2 strategies to manage stress by discharge and Other Additional outcome/goals: Intervention/Plan: See List Interventions/Plan:: Assess stressors,coping strategies & signs of derpression on admission, Instruct/assist pt to develop coping & personal stress Mgt strategies, Refer to Behavioral Health if appropriate, Refer to Physician if appropriate, Instruct patient to recognize signs & symptoms of depression, Instruct patient to recog and Other additional plan/intervention 30-day Reassessments: 30 day Reassessments:: Met Reassessment Notes & Comments:: Pt denies any psychosocial issues at this time. Psychosocial - Final Assessmen Target Goals Target Goals Referral to Behavioral Health PS - Interventions: Yes: Attend Stress Management Classes Nutrition - 90-Day Assessment Program Goals Nutrition Program Goals Patient has diagnosis of Hyperlipidemia (ICD E78)?: No Visit Date of Eval: 07/31/24 Session #:: 31 Cholesterol/Lipids (Other Core Measures) Determine presence & major risk factors that modify LDL goal: Hypertension or hypertensive medication, Low HDL cholesterol <40 mg/dL*, Family history of premature CHD in Male < 55 years: female <65 yearsFa and Age men > 45 years; women >/= 55 years Outcomes/Goals: Pt IDs own risk factors & lifestyle modifications by Session 10, Verbalizes symptoms of angina & response by session 3., Pt independently manages and Other Additional Outcomes/Goals: Intervention/Plan: Advocate for lipid panel cholesterol medication if applicabl e, Instruct on personal lipid levels & lipid goals/NCEP guidelines, Instruct on cholesterol and Other additional plan/int Diabetes (Other Core Measures) Diabetes Type: Not Applicable Weight Mgt (Other Care) Height: 5 ft 9 in Weight:: 256 lb BMI: 37.8 Diagnosis Overweight/Obesity BMI> 30% ICD-10 E66: Yes Diagnosis High BMI/Morbid Obesity BMI> 35% ICD-10 Z68: Yes Outcomes/Goals: Pt sets, maintains & shows weight loss goal & trend during rehab and Other additional outcomes/goals Intervention/Plan: Instruct on ideal BMI & set weight loss goal w/patient, As sist pt to ID & incorporate diet changes for weight loss by S9, Refer to Structured Weight Loss program as appropriate, Encourage goal of using 250- 300dcal per session for weight loss and Other additional plan/interventions 30 day Reassessments:: Progressing Healthy Eating Habits Will attend diet classes:: Yes Outcomes/Goals:: Consume diet rich in vegs,fruits,whole grain/high fiber,fish,lean meat, Limit sat/trans fats,cholesterol & added salts & sugars and Other additional outcome/goals: Intervention/Plan:: Assess current eating habits and Other Additional plan/interventions 30-day Reassessments:: Progressing Reassessment Notes & Comments:: Pt has attended nutrition class and understands the benefits of a heart healthy low sodium diet. Pt has lost 10 more lbs. Will continue to encourage pt. Education Gave educational materials for:: Signs & symptoms of hypoglycemia, Signs & symptoms of hyperglycemia, Relate diabetes to coronary artery disease and Healthy eating Nutrition - Final Assessment Weight Mgt (Other Care) Height: 5 ft 9 in Weight:: 256 lb BMI: 37.8
[2024-07-31 07:16] VITALS: BP 114/72; BMI 37.8
== END 2024-08-10 23:59 ==
LOC: CR 15:15
PROVIDERS: PCP Nurse Practitioner Primary Care; Referring Provider Internal Medicine Cardiovascular Disease; Visit Provider Internal Medicine Cardiovascular Disease
DX: Z95.5 Presence of coronary angioplasty implant and graft (principal); I21.02 ST elevation (STEMI) myocardial infarction involving left anterior descending coronary artery; I25.10 Atherosclerotic heart disease of native coronary artery without angina pectoris
CPT/HCPCS: 93798

== ENCOUNTER → 2024-09-24 | Outpatient (CLI) | payer OTHER, SELFPAY ==
--- NOTE | 2024-09-24 13:49 | ECHOLC_ITS ---
Reason For Study Reason For Study: Reassess LV function, CAD Procedure This was a limited 2D transthoracic echocardiogram. The study was technically difficult. Exam performed in department. Left Ventricle Normal LV size. Mild concentric left ventricular hypertrophy. Left ventricular systolic function is normal. The left ventricular ejection fraction is 55 %. No regional wall motion abnormalities noted. Right Ventricle Normal RV size. Normal systolic function. Atria Normal left atrium. Normal right atrium. Mitral Valve Normal mitral valve. Tricuspid Valve Normal tricuspid valve. Aortic Valve Trisinus/trileaflet aortic valve. Great Vessels Normal aortic root. Pericardium/Pleural No pericardial effusion. Medication 22 gauge I.V. with prn adaptor inserted into right arm. Diluted definity 2.0ml given slow IV push to enhance endocardial definition. MMode/2D Measurements & Calculations LVIDd: 5.3 cm IVSd: 1.4 cm Ao root diam: 3.7 cm LVIDs: 3.4 cm LVPWd: 1.2 cm RVDd: 3.1 cm FS: 35.3 % LAV(MOD-bp): 44.3 ml LVAd ap4: 40.3 cm2 LVAd ap2: 34.6 cm2 LAV(MOD-bp) Indexed: 19.2 ml/m2 LVLd ap4: 9.2 cm LVLd ap2: 9.2 cm LAV(MOD-sp2): 45.9 ml EDV(MOD-sp4): 149.7 ml EDV(MOD-sp2): 108.7 ml LAV(MOD-sp4): 42.3 ml EDV(sp4-el): 150.8 ml EDV(sp2-el): 110.5 ml LVAs ap4: 24.4 cm2 LVAs ap2: 21.8 cm2 LVLs ap4: 7.6 cm LVLs ap2: 8.1 cm ESV(MOD-sp4): 66.0 ml ESV(MOD-sp2): 49.3 ml ESV(sp4-el): 66.4 ml ESV(sp2-el): 50.0 ml EF(MOD-sp4): 55.9 % EF(MOD-sp2): 54.7 % EF(sp4-el): 56.0 % SV(MOD-sp4): 83.7 ml SV(MOD-sp2): 59.4 ml SV(sp4-el): 84.4 ml SI(MOD-sp4): 36.2 ml/m2 SI(MOD-sp2): 25.7 ml/m2 LA A4 area: 16.1 cm2 LA dimension(2D): 3.6 cm RA A4 area: 13.0 cm2 ECHO/Echo Limited w/Contrast Interpretation Summary Normal LV size. Left ventricular systolic function is normal. The left ventricular ejection fraction is 55 %. Mild concentric left ventricular hypertrophy. Contrast injection was performed. Ordering Physician: Fran Owens Referring Physician: Fox Urena Performed By: Ana M Asencio RDCS
== END | disposition home or self-care (01) ==
LOC: CVS 13:46
PROVIDERS: PCP Nurse Practitioner Primary Care; Referring Provider Nurse Practitioner Family; Visit Provider Nurse Practitioner Family
DX: I25.5 Ischemic cardiomyopathy (principal)
CPT/HCPCS: 93308; Q9957; A4216; C8924